=== PATIENT | male | born 1965 | race Caucasian/White ===

== ENCOUNTER 2016-10-18 22:38 | Observation (INO) | payer OTHER ==
[2016-10-18] MEDS ORDERED: Sodium Chloride 0.9% 1,000 ML IV ONE (23:24)
--- NOTE | 2016-10-18 23:28 | EDM.PDOC ---
ED HPI GENERAL MEDICAL PROBLEM - General Chief Complaint: Gastrointestinal Problem Stated Complaint: VOMITING/BLOOD IN STOOL Time Seen by Provider: 10/18/16 23:14 - History of Present Illness INITIAL COMMENTS - FREE TEXT/NARRATIVE: HISTORY AND PHYSICAL: History of present illness: Patient is 51-year-old white male presents with concern of nausea and vomiting times one followed by several episodes of gross blood per rectum he states as well as with the bowel movement he has not had prior episodes he denies any history of peptic ulcer disease he denied abdominal pain with this he denies fever chills denies history of diverticulosis or diverticulitis he denies any known bleeding diathesis he denies chest pain shortness breath or other concern Review of systems: As per history of present illness and below otherwise all systems reviewed and negative. Past medical history: As per history of present illness and as reviewed below otherwise noncontributory. Surgical history: As per history of present illness and as reviewed below otherwise noncontributory. Social history: No reported history of drug or alcohol abuse. Family history: As per history of present illness and as reviewed below otherwise noncontributory. Physical exam: HEENT: Atraumatic, normocephalic, pupils reactive, mild conjunctival pallor noted no scleral icterus, mucous membranes moist, throat clear, neck supple, nontender, trachea midline. Lungs: Clear to auscultation, breath sounds equal bilaterally, chest nontender. Heart: S1S2, regular, negative for clicks, rubs, or JVD. Abdomen: Soft, nondistended, nontender. Negative for masses or hepatosplenomegaly. Negative for costovertebral tenderness. Pelvis: Stable nontender. Genitourinary: Deferred. Rectal: Nontender small gross blood heme positive Extremities: Atraumatic, negative for cords or calf pain. Neurovascular unremarkable. Neuro: Awake, alert, oriented. Cranial nerves II through XII unremarkable. Cerebellum unremarkable. Motor and sensory unremarkable throughout. Exam nonfocal. Diagnostics: CBC CMP lipase PT/INR type and screen EKG chest x-ray CT of pelvis Therapeutics: Normal saline 1 L bolus Impression: #1 rectal bleeding Definitive disposition and diagnosis as appropriate pending reevaluation and review of above. Epigastric Pain Score (Numeric/FACES): 2 - Related Data Allergies Allergy/AdvReac Type Severity Reaction Status Date / Time latex Allergy Itching Verified 10/18/16 22:57 Home Meds: Home Meds Sertraline [Zoloft] 100 mg PO DAILY 05/31/14 [History] NIFEdipine [Procardia] 90 mg PO DAILY 03/26/15 [History] Acetaminophen [Acetaminophen ER] 650 mg PO DAILY PRN 01/06/16 [History] Bumetanide [Bumex] 3 mg PO ASDIRECTED 01/06/16 [History] Cetirizine HCl [Zyrtec] 10 mg PO ASDIRECTED PRN 01/06/16 [History] Labetalol HCl [Labetalol] 600 mg PO BID 01/06/16 [History] Metoprolol Tartrate [Lopressor] 100 mg PO DAILY 01/06/16 [History] Pantoprazole Sodium [Protonix] 40 mg PO DAILY 01/06/16 [History] Rivaroxaban [Xarelto] 20 mg PO DAILY 01/06/16 [History] Nitroglycerin 0.4 mg SL ASDIRECTED PRN #1 bottle 06/09/16 [Rx] Ondansetron [Zofran ODT] 4 mg PO Q8H PRN 06/09/16 [History] Canagliflozin [Invokana] 100 mg PO DAILY 10/19/16 [History] Fluticasone/Vilanterol [Breo Ellipta 100-25 MCG Inhalation Kit] 1 each IH DAILY 10/19/16 [History] Potassium Chloride [Klor-Con M20] 10 meq PO DAILY 10/19/16 [History] tiZANidine [Zanaflex] 4 mg PO TID PRN 10/19/16 [History] Past Medical History - Past Health History Medical/Surgical History: Denies Medical/Surgical History Cardiovascular History: Reports: Afib, Hypertension Respiratory History: Reports: Sleep Apnea Other Respiratory History: on cpap Other Genitourinary History: stage II kidney dse Musculoskeletal History: Reports: Back Pain, Chronic Other Musculoskeletal History: Pt complains of left knee pain x 2 weeks. Claimed to have taken Tylenol for it to no relief. Neurological History: Reports: Other (See Below) Other Neuro History: carpal tunnel Endocrine/Metabolic History: Reports: Diabetes, Type II Other Endocrine/Metabolic History: Pt reported he was diagnosed with Borderline DM. Blood sugar this morning was 170. - Infectious Disease History Infectious Disease History: Reports: Chicken Pox Other Infectious Disease History: Staph - Past Surgical History HEENT Surgical History: Reports: Tonsillectomy GI Surgical History: Reports: Cholecystectomy Musculoskeletal Surgical History: Reports: Arthroscopic Knee, Other (See Below) Social & Family History - Family History Family Medical History: Noncontributory - Tobacco Use Smoking Status *Q: Never Smoker Second Hand Smoke Exposure: No - Caffeine Use Caffeine Use: Reports: Coffee, Soda Caffeine Use Comment: 2cups/day; 3-4sodas/day - Alcohol Use Days Per Week of Alcohol Use: 1 Number of Drinks Per Day: 2 Total Drinks Per Week: 2 - Recreational Drug Use Recreational Drug Use: No ED ROS GENERAL - Review of Systems Review Of Systems: ROS reveals no pertinent complaints other than HPI. ED EXAM, GENERAL - Physical Exam Exam: See Below (See dictation) Course - Vital Signs Last Recorded V/S: Last Vital Signs Temp 37.0 C 10/18/16 22:53 Pulse 80 10/19/16 00:11 Resp 19 10/19/16 00:11 BP 131/68 10/19/16 00:11 Pulse Ox 99 10/19/16 00:11 - Orders/Labs/Meds Orders: Active Orders 24 hr Category Date Time Status EKG 12 Lead [EKG Documentation Completion] [RC] STAT Care 10/18/16 23:49 Active EKG Documentation Completion [RC] STAT Care 10/18/16 23:25 Active EKG Documentation Completion [RC] STAT Care 10/18/16 23:45 Inactive Abdomen Pelvis wo Cont [CT] Stat Exams 10/18/16 23:24 Taken Chest 1V Frontal [CR] Stat Exams 10/18/16 23:25 Taken TYPE AND SCREEN [BBK] Stat Lab 10/18/16 23:41 Received Labs: Laboratory Tests 10/18/16 10/18/16 10/18/16 Range/Units 23:05 23:05 23:05 WBC 10.39 (4.0-11.0) K/uL RBC 3.74 L (4.50-5.90) M/uL Hgb 10.9 L (13.0-17.0) g/dL Hct 33.3 L (38.0-50.0) % MCV 89.0 (80.0-98.0) fL MCH 29.1 (27.0-32.0) pg MCHC 32.7 (31.0-37.0) g/dL RDW Std Deviation 46.6 (28.0-62.0) fl RDW Coeff of [place] 14 (11.0-15.0) % Plt Count 251 (150-400) K/uL MPV 9.30 (7.40-12.00) fL Neut % (Auto) 72.8 (48.0-80.0) % Lymph % (Auto) 14.8 L (16.0-40.0) % [place] % (Auto) 9.0 (0.0-15.0) % Eos % (Auto) 3.0 (0.0-7.0) % Baso % (Auto) 0.4 (0.0-1.5) % Neut # (Auto) 7.6 H (1.4-5.7) K/uL Lymph # (Auto) 1.5 (0.6-2.4) K/uL [place] # (Auto) 0.9 H (0.0-0.8) K/uL Eos # (Auto) 0.3 (0.0-0.7) K/uL Baso # (Auto) 0.0 (0.0-0.1) K/uL Nucleated RBC % 0.0 /100WBC Nucleated RBCs # 0 K/uL INR 1.04 (0.86-1.11) Sodium 143 (136-146) mmol/L Potassium 4.3 (3.5-5.1) mmol/L Chloride 112 H (98-110) mmol/L Carbon Dioxide 22 (21-31) mmol/L BUN 34 H (6.0-23.0) mg/dL Creatinine 1.1 (0.6-1.5) mg/dL Est Cr Clr Drug Dosing 85.57 mL/min Estimated GFR (MDRD) > 60.0 ml/min Glucose 184 H (60-110) mg/dL Calcium 9.0 (8.8-10.8) mg/dL Total Bilirubin 0.2 (0.1-1.5) mg/dL AST 14 (5-40) IU/L ALT 17 (8-54) IU/L Alkaline Phosphatase 57 (40-150) Total Protein 5.9 L (6.0-8.0) g/dL Albumin 3.4 L (3.5-5.0) g/dL Globulin 2.5 (2.0-3.5) g/dL Albumin/Globulin Ratio 1.4 (1.3-2.8) Lipase 41 (7-80) U/L Urine Color Urine Appearance Urine pH (5.0-8.0) Ur Specific [place] (1.001-1.035) Urine Protein (NEGATIVE) mg/dL Urine Glucose (UA) (NEGATIVE) mg/dL Urine Ketones (NEGATIVE) mg/dL Urine Occult Blood (NEGATIVE) Urine Nitrite (NEGATIVE) Urine Bilirubin (NEGATIVE) Urine Urobilinogen (<2.0) EU/dL Ur Leukocyte Esterase (NEGATIVE) Urine RBC (0-2/HPF) Urine WBC (0-5/HPF) Ur Epithelial Cells (NONE-FEW) Urine Bacteria (NEGATIVE) Ethyl Alcohol < 10.0 mg/dL 10/18/16 Range/Units 23:30 WBC (4.0-11.0) K/uL RBC (4.50-5.90) M/uL Hgb (13.0-17.0) g/dL Hct (38.0-50.0) % MCV (80.0-98.0) fL MCH (27.0-32.0) pg MCHC (31.0-37.0) g/dL RDW Std Deviation (28.0-62.0) fl RDW Coeff of [place] (11.0-15.0) % Plt Count (150-400) K/uL MPV (7.40-12.00) fL Neut % (Auto) (48.0-80.0) % Lymph % (Auto) (16.0-40.0) % [place] % (Auto) (0.0-15.0) % Eos % (Auto) (0.0-7.0) % Baso % (Auto) (0.0-1.5) % Neut # (Auto) (1.4-5.7) K/uL Lymph # (Auto) (0.6-2.4) K/uL [place] # (Auto) (0.0-0.8) K/uL Eos # (Auto) (0.0-0.7) K/uL Baso # (Auto) (0.0-0.1) K/uL Nucleated RBC % /100WBC Nucleated RBCs # K/uL INR (0.86-1.11) Sodium (136-146) mmol/L Potassium (3.5-5.1) mmol/L Chloride (98-110) mmol/L Carbon Dioxide (21-31) mmol/L BUN (6.0-23.0) mg/dL Creatinine (0.6-1.5) mg/dL Est Cr Clr Drug Dosing mL/min Estimated GFR (MDRD) ml/min Glucose (60-110) mg/dL Calcium (8.8-10.8) mg/dL Total Bilirubin (0.1-1.5) mg/dL AST (5-40) IU/L ALT (8-54) IU/L Alkaline Phosphatase (40-150) Total Protein (6.0-8.0) g/dL Albumin (3.5-5.0) g/dL Globulin (2.0-3.5) g/dL Albumin/Globulin Ratio (1.3-2.8) Lipase (7-80) U/L Urine Color YELLOW Urine Appearance CLEAR Urine pH 6.0 (5.0-8.0) Ur Specific [place] 1.025 (1.001-1.035) Urine Protein 100 (NEGATIVE) mg/dL Urine Glucose (UA) NEGATIVE (NEGATIVE) mg/dL Urine Ketones NEGATIVE (NEGATIVE) mg/dL Urine Occult Blood NEGATIVE (NEGATIVE) Urine Nitrite NEGATIVE (NEGATIVE) Urine Bilirubin NEGATIVE (NEGATIVE) Urine Urobilinogen 0.2 (<2.0) EU/dL Ur Leukocyte Esterase NEGATIVE (NEGATIVE) Urine RBC 0-1 (0-2/HPF) Urine WBC 0-1 (0-5/HPF) Ur Epithelial Cells NOT SEEN (NONE-FEW) Urine Bacteria RARE (NEGATIVE) Ethyl Alcohol mg/dL Meds: Medications Discontinued Medications Generic Name Dose Route Start Last Admin Trade Name Freq PRN Reason Stop Dose Admin Sodium Chloride 1,000 mls @ 999 mls/hr 10/18/16 23:24 10/18/16 23:36 Normal Saline IV 10/19/16 00:24 999 mls/hr STAT ONE Administration Departure - Departure Time of Disposition: 00:57 Disposition: Refer to Observation Condition: good Clinical Impression: Gastrointestinal hemorrhage - Discharge Information Forms: ED Department Discharge - My Orders Last 24 Hours: My Active Orders 10/18/16 23:24 Abdomen Pelvis wo Cont [CT] Stat 10/18/16 23:25 EKG Documentation Completion [RC] STAT Chest 1V Frontal [CR] Stat 10/18/16 23:41 TYPE AND SCREEN [BBK] Stat 10/18/16 23:45 EKG Documentation Completion [RC] STAT 10/18/16 23:49 EKG 12 Lead [EKG Documentation Completion] [RC] STAT - Assessment/Plan Last 24 Hours: My Active Orders 10/18/16 23:24 Abdomen Pelvis wo Cont [CT] Stat 10/18/16 23:25 EKG Documentation Completion [RC] STAT Chest 1V Frontal [CR] Stat 10/18/16 23:41 TYPE AND SCREEN [BBK] Stat 10/18/16 23:45 EKG Documentation Completion [RC] STAT 10/18/16 23:49 EKG 12 Lead [EKG Documentation Completion] [RC] STAT
[2016-10-18 23:43] LABS: CHLORIDE,CL 112 mmol/L (98-110); SODIUM,NA 143 mmol/L (136-146)
[2016-10-19] MEDS: Sodium Chloride 0.9% 1,000 ML IV SCH ×2 (02:37→10:11)
[2016-10-19] MEDS: Pantoprazole 40 MG in Sodium Chloride 0.9% 10 ML IVPUSH SCH ×2 (02:42→13:45)
[2016-10-19 05:21] LABS: CHLORIDE,CL 115 mmol/L (98-110); SODIUM,NA 141 mmol/L (136-146)
[2016-10-19] MEDS ORDERED: Insulin Aspart 100 Units/ML 3 ML Pen SUBCUT SCH (06:00)
[2016-10-19] MEDS: Insulin Aspart 100 Units/ML 3 ML Pen SUBCUT SCH ×2 (06:16→11:07)
--- NOTE | 2016-10-19 10:34 | CT ---
EXAM DATE: 10/19/16 PATIENT'S AGE: 51 Patient: ROSY CHUNG Facility: [place], [place] Site . Site : 1965 Study: CT Abdomen/Pelvis [id number]/19/[id number] 12:09:25 AM Ordering Physician: MARYBETH Final Report: INDICATION: Mid abdominal pain TECHNIQUE: CT abdomen and pelvis without contrast. COMPARISON: None FINDINGS: Lower chest: Small amount of simple pericardial fluid. Liver: Unremarkable. Spleen: Punctate calcified splenic granulomata. Pancreas: Unremarkable. Gallbladder and bile ducts: Status post cholecystectomy. Adrenal glands: Unremarkable. Kidneys: Simple cysts on both kidneys. No kidney or ureteral stones and no hydronephrosis. GI tract: Unremarkable. Appendix is normal. Vascular structures: Mild atherosclerotic disease. Lymph nodes: Unremarkable. Miscellaneous: Fat containing right inguinal hernia. No free air or significant free fluid. Pelvic Organs: Unremarkable. Bones: Unremarkable for age. IMPRESSION: No acute intra-abdominal process. There is no renal stone. Small pericardial effusion. Fat containing right inguinal hernia. Status postcholecystectomy. Dictated by Yaa Moraes MD @ Oct 19 2016 12:09AM (Electronic Signature) Report Signed by Proxy. [facility] HOSPITALIzzy
--- NOTE | 2016-10-19 10:34 | CR ---
EXAM DATE: 10/19/16 PATIENT'S AGE: 51 Patient: ROSY CHUNG Facility: [place], [place] Site . Site : 1965 Study: XRay Chest [id number]/19/2017 12:08:39 AM Ordering Physician: Migel Henley Final Report: Indication: Pain, shortness of breath Technique: Chest 1 view. Comparison: September 09, 2014 Findings: Cardiovascular and mediastinum: Heart size and vasculature are normal in caliber and appearance. Mediastinum is within normal limits. Lungs and pleural space: Lungs are clear. No sign of infiltrate or mass. No sign of pleural effusion. No pneumothorax. Bones and soft tissues: No significant findings. Impression: No sign of acute disease. Dictated by Yaa Moraes MD @ Oct 19 2016 12:09AM (Electronic Signature) Report Signed by Proxy. MARGI
--- NOTE | 2016-10-19 12:22 | PCM.HP ---
H&P History of Present Illness - General Date of Service: 10/19/16 Admit Problem/Dx: Admission Diagnosis/Problem Admission Diagnosis/Problem Gastrointestinal hemorrhage - History of Present Illness Initial Comments - Free Text/Narative: 51 yo male with history of AF, HTN, DM2, FELIX, Cholecystectomy and CKD stage 2 admitted for rectal bleeding. His is currently at bedside. Bleeding began last night at around 9pm. He describes it as watery appearing blood with little amounts of stool. It was accompanied with intense stomach pains, nausea and vomiting. He denies any anal or rectal pain during bowel movements. He does not take any NSAIDS. He is currently on Doxycycline which was started 1 week ago for cellulitis of his left leg. He does not use alcohol or tobacco. He had no fever, chills or other recent illness. He states he was doing fine prior to this starting. He denies eating anything unusual. He had some leftover beef from the day before but it was less than 24 hours old. He has a family history of colon cancer in his grandfather. About 20 years ago patient himself developed hemorrhoids for which he had a colonoscopy that was normal. Patient has had about 20 lbs weight loss over the past 2 months. Prior to the weight loss he was started on Invokana for his diabetes which has caused him to lose his appetite and not eat as much. Patient was on eliquis in the past for AF but he states he has not taken it for over 2 months due to its high cost. 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 Patients also states that patient was complaining of indigestion and looking pale prior to onset of rectal bleeding but patient denies feeling ill. ED Course: -NS Bolus -afebrile, bp 153/100, HR 91, AF on EKG -Hb 10.9, WBC 10.9k -PT/INR 1.04 -BUN 34, Cr 1.1, GFR>60 -Na 143, K 4.3, Cl 112, Bicarb 22, Glucose 184 -Lipase/Alk Phos/ALT/AST all normal -CT Abdomen - Small Right inguinal Hernia. Small Pericardial Effusion. All others WNL. Epigastric Pain Score (Numeric/FACES): 2 - Related Data Allergies/Adverse Reactions: Allergies Allergy/AdvReac Type Severity Reaction Status Date / Time latex Allergy Itching Verified 10/18/16 22:57 Home Medications: Home Meds Sertraline [Zoloft] 100 mg PO BEDTIME 05/31/14 [History] Acetaminophen [Acetaminophen ER] 650 mg PO DAILY PRN 01/06/16 [History] Bumetanide [Bumex] 3 mg PO DAILY 01/06/16 [History] Cetirizine HCl [Zyrtec] 10 mg PO ASDIRECTED PRN 01/06/16 [History] Labetalol HCl [Labetalol] 600 mg PO BID 01/06/16 [History] Metoprolol Tartrate [Lopressor] 100 mg PO BEDTIME 01/06/16 [History] Pantoprazole Sodium [Protonix] 40 mg PO DAILY 01/06/16 [History] Rivaroxaban [Xarelto] 20 mg PO DAILY 01/06/16 [History] Nitroglycerin 0.4 mg SL ASDIRECTED PRN #1 bottle 06/09/16 [Rx] Ondansetron [Zofran ODT] 4 mg PO TID PRN 06/09/16 [History] Bumetanide 2 mg PO QPM 10/19/16 [History] Canagliflozin [Invokana] 100 mg PO DAILY 10/19/16 [History] Doxycycline [Vibramycin] 10/19/16 [History] Fluticasone/Vilanterol [Breo Ellipta 100-25 MCG Inhalation Kit] 1 each IH DAILY 10/19/16 [History] Lisinopril 40 mg PO DAILY 10/19/16 [History] Mupirocin Oint [Bactroban Oint] 1 applic TOP TID PRN 10/19/16 [History] NIFEdipine [Adalat cc] 90 mg PO BID 10/19/16 [History] [place]-3 Acid Ethyl Esters [Lovaza] 2,000 mg PO BID 10/19/16 [History] Potassium Chloride [Klor-Con M20] 10 meq PO DAILY 10/19/16 [History] tiZANidine [Zanaflex] 4 mg PO TID PRN 10/19/16 [History] Past Medical History - Past Health History Medical/Surgical History: Denies Medical/Surgical History HEENT History: Reports: None Cardiovascular History: Reports: Afib, Hypertension Respiratory History: Reports: Sleep Apnea Other Respiratory History: on cpap Gastrointestinal History: Reports: Cholelithiasis, Hemorrhoids Other Genitourinary History: stage II kidney dse Musculoskeletal History: Reports: Back Pain, Chronic Other Musculoskeletal History: Pt complains of left knee pain x 2 weeks. Claimed to have taken Tylenol for it to no relief. Parcialy ruptured disc. Shoulder separature, fracture tail bone. Neurological History: Reports: Other (See Below) Other Neuro History: carpal tunnel Endocrine/Metabolic History: Reports: Diabetes, Type II Other Endocrine/Metabolic History: Pt reported he was diagnosed with Borderline DM. Blood sugar this morning was 170. Dermatologic History: Reports: Cellulitis - Infectious Disease History Infectious Disease History: Reports: Chicken Pox Other Infectious Disease History: Staph - Past Surgical History HEENT Surgical History: Reports: Tonsillectomy Cardiovascular Surgical History: Reports: None Respiratory Surgical History: Reports: None GI Surgical History: Reports: Cholecystectomy, Colostomy, EGD Male Surgical History: Reports: None Endocrine Surgical History: Reports: None Musculoskeletal Surgical History: Reports: Arthroscopic Knee, Carpal Tunnel, Other (See Below) Social & Family History - Family History Family Medical History: Noncontributory - Tobacco Use Smoking Status *Q: Never Smoker Tobacco Use Comment: tried before. Second Hand Smoke Exposure: No - Caffeine Use Caffeine Use: Reports: Coffee, Soda, Tea Caffeine Use Comment: 2cups/day; 3-4sodas/day - Alcohol Use Days Per Week of Alcohol Use: 1 Number of Drinks Per Day: 2 Total Drinks Per Week: 2 - Recreational Drug Use Recreational Drug Use: No H&P Review of Systems - Review of Systems: Review Of Systems: See Below General: Reports: Weakness, Decreased Appetite, Weight Loss. Denies: Fever, Chills, Night Sweats HEENT: Reports: No Symptoms Pulmonary: Reports: No Symptoms Cardiovascular: Reports: No Symptoms Gastrointestinal: Reports: Abdominal Pain, Bloody Stool, Decreased Appetite, Hematochezia, Nausea, Vomiting. Denies: Hematemesis, Melena Genitourinary: Reports: No Symptoms Musculoskeletal: Reports: Other (baseline chronic pain) Skin: Reports: No Symptoms Psychiatric: Reports: No Symptoms Neurological: Reports: Tremors. Denies: Confusion, Dizziness, Headache, Numbness Exam - Exam Exam: See Below - Vital Signs Vital Signs: Last Vital Signs Temp 36.6 C 10/19/16 04:00 Pulse 70 10/19/16 08:00 Resp 16 10/19/16 08:00 BP 167/100 H 10/19/16 08:00 Pulse Ox 96 10/19/16 08:00 Weight: 113.6 kg - Exam General: Alert, Oriented, Cooperative, Mild Distress HEENT: Conjunctiva Clear, EACs Clear Neck: Supple, Trachea Midline, +2 Carotid Pulse wo Bruit. No: JVD Lungs: Clear to Auscultation, Normal Respiratory Effort Cardiovascular: Regular Rate, Irregular Rhythm Abdomen: Other (epigastric tenderness, hypogasteric tenderness, ). No: Peritoneal Signs, Distention, Rebound, Hepatomegaly, Splenomegaly, Campbell's Sign Extremities: Normal Inspection Skin: Other (Left Leg cellulitis ) Neuro Extensive - Mental Status: Alert, Oriented x3, Normal Mood/Affect, Normal Cognition - Patient Data Lab Results last 24 hrs: Laboratory Results - last 24 hr 10/19/16 10/19/16 10/19/16 Range/Units 04:29 04:40 04:40 WBC 7.67 (4.0-11.0) K/uL RBC 3.19 L (4.50-5.90) M/uL Hgb 9.5 L (13.0-17.0) g/dL Hct 28.3 L (38.0-50.0) % MCV 88.7 (80.0-98.0) fL MCH 29.8 (27.0-32.0) pg MCHC 33.6 (31.0-37.0) g/dL RDW Std Deviation 46.5 (28.0-62.0) fl RDW Coeff of [place] 14 (11.0-15.0) % Plt Count 214 (150-400) K/uL MPV 9.00 (7.40-12.00) fL Neut % (Auto) 54.9 (48.0-80.0) % Lymph % (Auto) 30.6 (16.0-40.0) % [place] % (Auto) 8.9 (0.0-15.0) % Eos % (Auto) 5.1 (0.0-7.0) % Baso % (Auto) 0.5 (0.0-1.5) % Neut # (Auto) 4.2 (1.4-5.7) K/uL Lymph # (Auto) 2.4 (0.6-2.4) K/uL [place] # (Auto) 0.7 (0.0-0.8) K/uL Eos # (Auto) 0.4 (0.0-0.7) K/uL Baso # (Auto) 0.0 (0.0-0.1) K/uL Nucleated RBC % 0.0 /100WBC Nucleated RBCs # 0 K/uL Lactate (0.20-2.00) mmol/L Sodium 141 (136-146) mmol/L Potassium 3.8 (3.5-5.1) mmol/L Chloride 115 H (98-110) mmol/L Carbon Dioxide 18 L (21-31) mmol/L BUN 38 H (6.0-23.0) mg/dL Creatinine 0.9 (0.6-1.5) mg/dL Est Cr Clr Drug Dosing 104.58 mL/min Estimated GFR (MDRD) > 60.0 ml/min Glucose 119 H (60-110) mg/dL POC Glucose 105 (60-110) mg/dL Calcium 8.4 L (8.8-10.8) mg/dL 10/19/16 10/19/16 Range/Units 10:56 11:07 WBC (4.0-11.0) K/uL RBC (4.50-5.90) M/uL Hgb (13.0-17.0) g/dL Hct (38.0-50.0) % MCV (80.0-98.0) fL MCH (27.0-32.0) pg MCHC (31.0-37.0) g/dL RDW Std Deviation (28.0-62.0) fl RDW Coeff of [place] (11.0-15.0) % Plt Count (150-400) K/uL MPV (7.40-12.00) fL Neut % (Auto) (48.0-80.0) % Lymph % (Auto) (16.0-40.0) % [place] % (Auto) (0.0-15.0) % Eos % (Auto) (0.0-7.0) % Baso % (Auto) (0.0-1.5) % Neut # (Auto) (1.4-5.7) K/uL Lymph # (Auto) (0.6-2.4) K/uL [place] # (Auto) (0.0-0.8) K/uL Eos # (Auto) (0.0-0.7) K/uL Baso # (Auto) (0.0-0.1) K/uL Nucleated RBC % /100WBC Nucleated RBCs # K/uL Lactate 1.2 (0.20-2.00) mmol/L Sodium (136-146) mmol/L Potassium (3.5-5.1) mmol/L Chloride (98-110) mmol/L Carbon Dioxide (21-31) mmol/L BUN (6.0-23.0) mg/dL Creatinine (0.6-1.5) mg/dL Est Cr Clr Drug Dosing mL/min Estimated GFR (MDRD) ml/min Glucose (60-110) mg/dL POC Glucose 119 H (60-110) mg/dL Calcium (8.8-10.8) mg/dL Result Diagrams: 10/19/16 04:40 10/19/16 04:40 *Q Meaningful Use (ADM) - VTE *Q VTE Criteria *Q: - Stroke *Q Stroke Criteria *Q: - AMI *Q AMI Criteria *Q: Problem List Initiated/Reviewed/Updated: Yes Orders Last 24hrs: Active Orders 24 hr Category Date Time Status Blood Glucose Check, Bedside [RC] Q6H Care 10/19/16 05:00 Active Telemetry Monitoring [Cardiac Monitoring] [RC] Q8H Care 10/19/16 02:55 Active Nothing Per Oral Diet [DIET] Diet 10/19/16 Breakfast Active CBC WITH AUTO DIFF [HEME] Routine Lab 10/19/16 16:00 Ordered Insulin Aspart [NovoLOG] Med 10/19/16 05:00 Active See Protocol SUBCUT Q6H Pantoprazole [ProTONIX IV] 40 mg Med 10/19/16 02:30 Active Sodium Chloride 0.9% [Normal Saline] 10 ml IVPUSH Q12H Sodium Chloride 0.9% [Normal Saline] 1,000 ml Med 10/19/16 02:30 Active IV ASDIRECTED Medication Orders Pantoprazole Sodium 40 mg/ (Sodium Chloride) 10 mls @ 300 mls/hr IVPUSH Q12H [facility] Last Admin: 10/19/16 02:42 Dose: 300 mls/hr Sodium Chloride (Normal Saline) 1,000 mls @ 125 mls/hr IV ASDIRECTED [facility] Last Admin: 10/19/16 10:11 Dose: 125 mls/hr Infusion: 10/19/16 10:11 Dose: 125 mls/hr Admin: 10/19/16 02:37 Dose: 125 mls/hr Insulin Aspart (Novolog) 0 unit SUBCUT Q6H [facility] PRN Reason: Protocol Last Admin: 10/19/16 11:07 Dose: Not Given Admin: 10/19/16 06:16 Dose: Not Given Assessment/Plan Comment:: Asessment: 1. Rectal Bleeding 2. Abdominal Pain and Epigastric+Hypogastric Tenderness 3. Anemia, Hb currently 10.9, admission Hb 4 hours prior was 9.5 4. Atrial Fibrillation, rate controlled 5. HTN, secondary to holding of BP medications 6. Hx CKD stage 2, currently good renal function 7. Hx Diabetes Type 2, on Invokana 8. Hx FELIX, on CPAP 9. Right Inguinal Hernia, on CT Abdomen 10. Pericardial Effusion, on CT Plan: 1. NPO 2. Telemetry 3. IV NS @ 125 ml/hour 4. Protonix 40 mg IV BID 5. Stool studies - C. Diff Toxin, H. Pylori, Leukocytes, Culture, Ova and Parasites, Shiga Toxin 6. Lactic Acid Level 7. repeat CBC & BMP in evening 8. DVT Prophylaxis - SCD's 9. Consult to surgery - Dr. Ortiz has agreed to see the patient
[2016-10-19] MEDS ORDERED: Metoprolol Tartrate 5 MG/5 ML SDV IVPUSH ONE ×2 (13:14→14:52)
[2016-10-19] MEDS ORDERED: NIFEdipine 30 MG Tab.ER PO ONE (13:23)
--- NOTE | 2016-10-19 14:55 | PCM.CONS ---
H&P History of Present Illness - General Date of Service: 10/19/16 Admit Problem/Dx: Admission Diagnosis/Problem Admission Diagnosis/Problem Gastrointestinal hemorrhage 51 y/o gentleman admitted with persistent rectal bleeding. No prior history of rectal bleeding or diverticulosis. Remote history of hemorrhoids. No recent flare-ups. Source of Information: Patient, Family History Limitations: Reports: No Limitations - History of Present Illness Onset of Symptoms: Reports: Gradual Symptom Onset Date: 10/18/16 Duration of Symptoms: Reports: Hour(s): Location: Reports: Abdomen Quality: Reports: Ache Severity: Moderate Improves with: Reports: None Worsens with: Reports: None Context: Reports: Sick Contact Associated Symptoms: Denies: Diaphoresis, Fever/Chills, Nausea/Vomiting Epigastric Pain Score (Numeric/FACES): 2 - Related Data Allergies/Adverse Reactions: Allergies Allergy/AdvReac Type Severity Reaction Status Date / Time latex Allergy Itching Verified 10/18/16 22:57 Home Medications: Home Meds Sertraline [Zoloft] 100 mg PO BEDTIME 05/31/14 [History] Acetaminophen [Acetaminophen ER] 650 mg PO DAILY PRN 01/06/16 [History] Bumetanide [Bumex] 3 mg PO DAILY 01/06/16 [History] Cetirizine HCl [Zyrtec] 10 mg PO ASDIRECTED PRN 01/06/16 [History] Labetalol HCl [Labetalol] 600 mg PO BID 01/06/16 [History] Metoprolol Tartrate [Lopressor] 100 mg PO BEDTIME 01/06/16 [History] Pantoprazole Sodium [Protonix] 40 mg PO DAILY 01/06/16 [History] Rivaroxaban [Xarelto] 20 mg PO DAILY 01/06/16 [History] Nitroglycerin 0.4 mg SL ASDIRECTED PRN #1 bottle 06/09/16 [Rx] Ondansetron [Zofran ODT] 4 mg PO TID PRN 06/09/16 [History] Bumetanide 2 mg PO QPM 10/19/16 [History] Canagliflozin [Invokana] 100 mg PO DAILY 10/19/16 [History] Doxycycline [Vibramycin] 10/19/16 [History] Fluticasone/Vilanterol [Breo Ellipta 100-25 MCG Inhalation Kit] 1 each IH DAILY 10/19/16 [History] Lisinopril 40 mg PO DAILY 10/19/16 [History] Mupirocin Oint [Bactroban Oint] 1 applic TOP TID PRN 10/19/16 [History] NIFEdipine [Adalat cc] 90 mg PO BID 10/19/16 [History] [place]-3 Acid Ethyl Esters [Lovaza] 2,000 mg PO BID 10/19/16 [History] Potassium Chloride [Klor-Con M20] 10 meq PO DAILY 10/19/16 [History] tiZANidine [Zanaflex] 4 mg PO TID PRN 10/19/16 [History] Past Medical History - Past Health History Medical/Surgical History: Denies Medical/Surgical History HEENT History: Reports: None Cardiovascular History: Reports: Afib, Hypertension Respiratory History: Reports: Sleep Apnea Other Respiratory History: on cpap Gastrointestinal History: Reports: Cholelithiasis, Hemorrhoids Other Genitourinary History: stage II kidney dse Musculoskeletal History: Reports: Back Pain, Chronic Other Musculoskeletal History: Pt complains of left knee pain x 2 weeks. Claimed to have taken Tylenol for it to no relief. Parcialy ruptured disc. Shoulder separature, fracture tail bone. Neurological History: Reports: Other (See Below) Other Neuro History: carpal tunnel Endocrine/Metabolic History: Reports: Diabetes, Type II Other Endocrine/Metabolic History: Pt reported he was diagnosed with Borderline DM. Blood sugar this morning was 170. Dermatologic History: Reports: Cellulitis - Infectious Disease History Infectious Disease History: Reports: Chicken Pox Other Infectious Disease History: Staph - Past Surgical History HEENT Surgical History: Reports: Tonsillectomy Cardiovascular Surgical History: Reports: None Respiratory Surgical History: Reports: None GI Surgical History: Reports: Cholecystectomy, Colostomy, EGD Male Surgical History: Reports: None Endocrine Surgical History: Reports: None Musculoskeletal Surgical History: Reports: Arthroscopic Knee, Carpal Tunnel, Other (See Below) Social & Family History - Family History Family Medical History: Noncontributory - Tobacco Use Smoking Status *Q: Never Smoker Tobacco Use Comment: tried before. Second Hand Smoke Exposure: No - Caffeine Use Caffeine Use: Reports: Coffee, Soda, Tea Caffeine Use Comment: 2cups/day; 3-4sodas/day - Alcohol Use Days Per Week of Alcohol Use: 1 Number of Drinks Per Day: 2 Total Drinks Per Week: 2 - Recreational Drug Use Recreational Drug Use: No H&P Review of Systems - Review of Systems: Review Of Systems: See Below General: Denies: Fever, Chills, Malaise, Weakness, Fatigue, Diaphoresis HEENT: Reports: No Symptoms Pulmonary: Denies: Shortness of Breath, Wheezing Cardiovascular: Denies: Chest Pain, Dyspnea on Exertion Gastrointestinal: Reports: Abdominal Pain, Bloody Stool, Hematochezia. Denies: Constipation, Diarrhea, Distension, Hematemesis, Melena, Nausea, Vomiting Genitourinary: Reports: No Symptoms Musculoskeletal: Reports: No Symptoms Skin: Reports: No Symptoms Psychiatric: Reports: No Symptoms Neurological: Reports: No Symptoms Hematologic/Lymphatic: Reports: Anemia. Denies: Easy Bleeding, Easy Bruising Immunologic: Reports: No Symptoms Exam - Exam Exam: See Below - Vital Signs Vital Signs: Last Vital Signs Temp 97.6 F 10/19/16 12:00 Pulse 72 10/19/16 13:48 Resp 16 10/19/16 13:48 BP 211/117 H 10/19/16 13:48 Pulse Ox 99 10/19/16 13:48 Weight: 250 lb 7.122 oz - Exam General: Alert, Oriented, Cooperative HEENT: Conjunctiva Clear, EACs Clear, EOMI. No: Scleral Icterus Neck: Supple, Trachea Midline Lungs: Clear to Auscultation, Normal Respiratory Effort. No: Wheezing Cardiovascular: Regular Rate, Regular Rhythm, Normal S1, Normal S2. No: Tachycardia, Systolic Murmur, Diastolic Murmur Abdomen: Normal Bowel Sounds, Soft. No: Organomegaly, Peritoneal Signs, Distention, Guarding, Rigidity, Rebound, Tenderness (Male) Exam: No Hernia, Normal Inspection Rectal (Males) Exam: Deferred Back Exam: Normal Inspection Extremities: Normal Inspection, Normal Pulses - Patient Data Lab Results last 24 hrs: Laboratory Results - last 24 hr 10/19/16 10/19/16 10/19/16 Range/Units 04:29 04:40 04:40 WBC 7.67 (4.0-11.0) K/uL RBC 3.19 L (4.50-5.90) M/uL Hgb 9.5 L (13.0-17.0) g/dL Hct 28.3 L (38.0-50.0) % MCV 88.7 (80.0-98.0) fL MCH 29.8 (27.0-32.0) pg MCHC 33.6 (31.0-37.0) g/dL RDW Std Deviation 46.5 (28.0-62.0) fl RDW Coeff of [place] 14 (11.0-15.0) % Plt Count 214 (150-400) K/uL MPV 9.00 (7.40-12.00) fL Neut % (Auto) 54.9 (48.0-80.0) % Lymph % (Auto) 30.6 (16.0-40.0) % [place] % (Auto) 8.9 (0.0-15.0) % Eos % (Auto) 5.1 (0.0-7.0) % Baso % (Auto) 0.5 (0.0-1.5) % Neut # (Auto) 4.2 (1.4-5.7) K/uL Lymph # (Auto) 2.4 (0.6-2.4) K/uL [place] # (Auto) 0.7 (0.0-0.8) K/uL Eos # (Auto) 0.4 (0.0-0.7) K/uL Baso # (Auto) 0.0 (0.0-0.1) K/uL Nucleated RBC % 0.0 /100WBC Nucleated RBCs # 0 K/uL Lactate (0.20-2.00) mmol/L Sodium 141 (136-146) mmol/L Potassium 3.8 (3.5-5.1) mmol/L Chloride 115 H (98-110) mmol/L Carbon Dioxide 18 L (21-31) mmol/L BUN 38 H (6.0-23.0) mg/dL Creatinine 0.9 (0.6-1.5) mg/dL Est Cr Clr Drug Dosing 104.58 mL/min Estimated GFR (MDRD) > 60.0 ml/min Glucose 119 H (60-110) mg/dL POC Glucose 105 (60-110) mg/dL Calcium 8.4 L (8.8-10.8) mg/dL 10/19/16 10/19/16 Range/Units 10:56 11:07 WBC (4.0-11.0) K/uL RBC (4.50-5.90) M/uL Hgb (13.0-17.0) g/dL Hct (38.0-50.0) % MCV (80.0-98.0) fL MCH (27.0-32.0) pg MCHC (31.0-37.0) g/dL RDW Std Deviation (28.0-62.0) fl RDW Coeff of [place] (11.0-15.0) % Plt Count (150-400) K/uL MPV (7.40-12.00) fL Neut % (Auto) (48.0-80.0) % Lymph % (Auto) (16.0-40.0) % [place] % (Auto) (0.0-15.0) % Eos % (Auto) (0.0-7.0) % Baso % (Auto) (0.0-1.5) % Neut # (Auto) (1.4-5.7) K/uL Lymph # (Auto) (0.6-2.4) K/uL [place] # (Auto) (0.0-0.8) K/uL Eos # (Auto) (0.0-0.7) K/uL Baso # (Auto) (0.0-0.1) K/uL Nucleated RBC % /100WBC Nucleated RBCs # K/uL Lactate 1.2 (0.20-2.00) mmol/L Sodium (136-146) mmol/L Potassium (3.5-5.1) mmol/L Chloride (98-110) mmol/L Carbon Dioxide (21-31) mmol/L BUN (6.0-23.0) mg/dL Creatinine (0.6-1.5) mg/dL Est Cr Clr Drug Dosing mL/min Estimated GFR (MDRD) ml/min Glucose (60-110) mg/dL POC Glucose 119 H (60-110) mg/dL Calcium (8.8-10.8) mg/dL Result Diagrams: 10/19/16 04:40 10/19/16 04:40 Consult PN Assessment/Plan Procedures: Procedures ASSAY OF NATRIURETIC PEPTIDE (09/09/14) ASSAY OF TROPONIN QUANT (06/09/16) CHEST X-RAY 2VW FRONTAL&LATL (09/09/14) COMPLETE CBC W/AUTO DIFF WBC (06/09/16) COMPREHEN METABOLIC PANEL (06/09/16) CRITICAL CARE FIRST HOUR (09/09/14) ELECTROCARDIOGRAM TRACING (06/09/16) EMERGENCY DEPT VISIT (06/09/16) EMERGENCY DEPT VISIT (03/26/15) EMERGENCY DEPT VISIT (09/09/14) EXTREMITY STUDY (01/06/16) METABOLIC PANEL TOTAL CA (09/09/14) PROTHROMBIN TIME (09/09/14) ROUTINE VENIPUNCTURE (06/09/16) SEMEN ANAL STRICT CRITERIA (09/06/14) THER/PROPH/DIAG INJ IV PUSH (06/09/16) THER/PROPH/DIAG INJ SC/IM (01/06/16) THER/PROPH/DIAG IV INF INIT (01/06/16) TX/PRO/DX INJ NEW DRUG ADDON (01/06/16) TX/PRO/DX INJ SAME DRUG ANTIQUE FURNITURE REPRODUCER (09/09/14) URINALYSIS AUTO W/SCOPE (06/09/16) X-RAY EXAM OF ANKLE (06/09/16) (1) Diabetes SNOMED Code(s): 30810684 Code(s): E11.9 - TYPE 2 DIABETES MELLITUS WITHOUT COMPLICATIONS Priority: Medium Current Visit: Yes Qualifiers: Diabetes mellitus type: type 2 (2) Pericardial effusion SNOMED Code(s): 187494665 Code(s): I31.3 - PERICARDIAL EFFUSION (NONINFLAMMATORY) Priority: Low Current Visit: Yes (3) Gastrointestinal hemorrhage SNOMED Code(s): 98175056 Code(s): K92.2 - GASTROINTESTINAL HEMORRHAGE, UNSPECIFIED Priority: High Current Visit: Yes Qualifiers: GI bleed type/associated pathology: anorectal hemorrhage Qualified Code(s) : K62.5 - Hemorrhage of anus and rectum (4) CHF, Congestive heart failure SNOMED Code(s): 01691961 Code(s): I50.9 - HEART FAILURE, UNSPECIFIED Priority: Medium Current Visit: No (5) Uncontrolled hypertension SNOMED Code(s): 75264132 Code(s): I10 - ESSENTIAL (PRIMARY) HYPERTENSION Priority: Medium Current Visit: No Problem List Initiated/Reviewed/Updated: Yes Plan: Patient continues to have rectal bleeding after more than 12 hours in hospital. Has had a slight drop in Hemoglobin. Multiple medical problems. Given that he continues to bleed and there is no evidence of diverticulosis or other colon pathology on CT scan, this gentleman would best be served by transfer to a larger facility with therapeutic endoscopic and invasive angiographic capabilities. We do not have the capability of therapeutic endoscopy with endoscopic heat probe units or other available endoscopic cauterization options. Thank you for this consult.
[2016-10-19] MEDS ORDERED: Labetalol 100 MG Tab PO ONE (15:10)
[2016-10-19 15:22] VITALS: BP 208/125
== END 2016-10-19 14:15 ==
LOC: MW.ED 22:38 → MW.MS 10-19 01:03
PROVIDERS: ADMIT Internal Medicine; ATTEND Internal Medicine
DX: K62.5 Hemorrhage of anus and rectum (principal); R10.9 Unspecified abdominal pain; D64.9 Anemia, unspecified; I48.91 Unspecified atrial fibrillation; I12.9 Hypertensive chronic kidney disease with stage 1 through stage 4 chronic kidney disease, or unspecified chronic kidney disease; E11.22 Type 2 diabetes mellitus with diabetic chronic kidney disease; N18.2 Chronic kidney disease, stage 2 (mild); G47.33 Obstructive sleep apnea (adult) (pediatric); K40.90 Unilateral inguinal hernia, without obstruction or gangrene, not specified as recurrent; I31.3 Pericardial effusion (noninflammatory); Z91.040 Latex allergy status; Z99.89 Dependence on other enabling machines and devices; Z79.01 Long term (current) use of anticoagulants; Z79.51 Long term (current) use of inhaled steroids; Z79.899 Other long term (current) drug therapy; Z90.49 Acquired absence of other specified parts of digestive tract; Z90.89 Acquired absence of other organs; Z98.890 Other specified postprocedural states
CPT/HCPCS: 36415; 71010; 74176; 80048; 80053; 81001; 82962; 83605; 83690; 85025; 85610; 86850; 86900; 86901; 87046; 87324; 87338; 87899; 93005; 96361; 96374; 96375; 96376; 99285; A9270; C9113; G0378; G0480; J7040; 96360

== ENCOUNTER 2017-09-11 11:44 | Emergency (ER) | payer OTHER ==
[2017-09-11] MEDS: Sodium Chloride 0.9% 1,000 ML IV ONE (12:03)
--- NOTE | 2017-09-11 12:05 | EDM.PDOC ---
ED HPI GENERAL MEDICAL PROBLEM - General Chief Complaint: Neuro Symptoms/Deficits Stated Complaint: dizziness Time Seen by Provider: 09/11/17 11:49 Source of Information: Reports: Patient History Limitations: Reports: No Limitations - History of Present Illness INITIAL COMMENTS - FREE TEXT/NARRATIVE: HISTORY AND PHYSICAL: History of present illness: Patient is a 52-year-old male who presents to the emergency room today with complaints of dizziness. He states he had a normal morning and went to sit down around 10 AM when he started to feel dizzy with movement. He tried to continue with work but felt unsteady on his feet due to the dizziness. Mild sinus congestion reported. He denies any associated symptoms with this. He denies any fever, chills, chest pain, shortness of breath. He denies any abdominal pain, nausea, vomiting, diarrhea/constipation. He denies any recent head injury or trauma. Denies headache or blurred vision. Patient does have a history of type 2 diabetes which she takes oral medications for. He does not routinely check his sugars. Today he ate cookies after taking his morning medications (had not eaten anything else this morning). Patient also has a history of atrial fibrillation which she is currently on Xarelto. Review of systems: As per history of present illness and below otherwise all systems reviewed and negative. Past medical history: As per history of present illness and as reviewed below otherwise noncontributory. Surgical history: As per history of present illness and as reviewed below otherwise noncontributory. Social history: No reported history of drug or alcohol abuse. Family history: As per history of present illness and as reviewed below otherwise noncontributory. Physical exam: General: Well-developed and well-nourished 52-year-old male. Alert and oriented. Nontoxic appearing and in no acute distress. HEENT: Atraumatic, normocephalic, pupils equal and reactive bilaterally, negative for conjunctival pallor or scleral icterus, mucous membranes moist, throat clear, neck supple, nontender, trachea midline. No drooling or trismus noted. No meningeal signs Lungs: Clear to auscultation, breath sounds equal bilaterally, chest nontender. Heart: S1S2, regular rate and rhythm without overt murmur Abdomen: Soft, obese, nontender. Negative for masses. Negative for costovertebral tenderness. Pelvis: Stable nontender. Genitourinary: Deferred. Rectal: Deferred. Skin: Intact, warm, dry. No lesions or rashes noted. Extremities: Atraumatic, moves all extremities per self without difficulty or deficits, negative for cords or calf pain. Neurovascular unremarkable. Neuro: Awake, alert, oriented. Cranial nerves II through XII unremarkable. Cerebellum unremarkable. Motor and sensory unremarkable throughout. Exam nonfocal. Notes: Patient denies any symptoms all he is lying flat. Bedside BS 219. He states that if I were to have him walk around he would become dizzy again. EKG shows atrial fibrillation with a rate of 69. is at bedside. She states she tried to get him into the clinic but they were unable to do so until 3 PM. Patient's blood pressure has been elevated throughout his stay here in the emergency room. He states he does see a prizer hand in [place] who has been adjusting his BP medications frequently. He states that the blood pressure readings that have been obtained here are normal for him. He does not want any further medications at this time. He is requesting that no medications be given here, as he "doesn't want to miss anything up" with his regiment he is currently on. He is aware of the consequences of continuing to have elevated blood pressure and voices understanding. Slight change in blood pressure with orthostatic vital signs; see nursing notes. BUN/Creat elevated; likely due to his dehydration. Did strongly encourage admission due to the patient's elevated blood pressure and dehydration. He declines at this time. He states he was able to get in with Dr. Morataya tomorrow at 1 PM. Encouraged him to discuss his blood pressure, elevated BUN/creatinine, and dizziness. He and his voiced understanding and are agreeable to plan of care. They deny any further questions at this time. Diagnostics: CBC, CMP, troponin, EKG, chest x-ray, orthostatic vital signs Therapeutics: Normal saline Potassium Impression: Dizziness Dehydration Hypokalemia Unmanaged hypertension Plan: 1. Please make sure you're drinking plenty of fluids throughout the day to your dehydration status. 2. Follow-up with Dr. Morataya as you have scheduled for tomorrow. Please address your hypokalemia (low potassium), blood pressure, and elevated BUN/ Creatine lab values. Bring your printed labs with you. 3. Return to the ED as needed and as discussed. Definitive disposition and diagnosis as appropriate pending reevaluation and review of above. Onset: Today Duration: Hour(s): Location: Reports: Generalized - Related Data Allergies Allergy/AdvReac Type Severity Reaction Status Date / Time latex Allergy Itching Verified 10/18/16 22:57 Home Meds: Home Meds Sertraline [Zoloft] 100 mg PO BEDTIME 05/31/14 [History] Acetaminophen [Acetaminophen ER] 650 mg PO DAILY PRN 01/06/16 [History] Bumetanide [Bumex] 3 mg PO ASDIRECTED 01/06/16 [History] Cetirizine HCl [Zyrtec] 10 mg PO ASDIRECTED PRN 01/06/16 [History] Labetalol HCl [Labetalol] 600 mg PO BID 01/06/16 [History] Metoprolol Tartrate [Lopressor] 100 mg PO BEDTIME 01/06/16 [History] Pantoprazole Sodium [Protonix] 40 mg PO DAILY 01/06/16 [History] Rivaroxaban [Xarelto] 20 mg PO DAILY 01/06/16 [History] Nitroglycerin 0.4 mg SL ASDIRECTED PRN #1 bottle 06/09/16 [Rx] Ondansetron [Zofran ODT] 4 mg PO TID PRN 06/09/16 [History] Bumetanide 2 mg PO QPM 10/19/16 [History] Canagliflozin [Invokana] 100 mg PO DAILY 10/19/16 [History] Doxycycline [Vibramycin] 10/19/16 [History] Fluticasone/Vilanterol [Breo Ellipta 100-25 MCG Inhalation Kit] 1 each IH DAILY 10/19/16 [History] Lisinopril 40 mg PO DAILY 10/19/16 [History] Mupirocin Oint [Bactroban Oint] 1 applic TOP TID PRN 10/19/16 [History] NIFEdipine [Adalat cc] 90 mg PO QAM 10/19/16 [History] [place]-3 Acid Ethyl Esters [Lovaza] 2,000 mg PO BID 10/19/16 [History] Potassium Chloride [Klor-Con M20] 10 meq PO DAILY 10/19/16 [History] tiZANidine [Zanaflex] 4 mg PO TID PRN 10/19/16 [History] Albuterol [Ventolin HFA] 2 puff INH BID 09/11/17 [History] Dapagliflozin Propanediol [Farxiga] 1 tab PO DAILY 09/11/17 [History] Enalapril Maleate 40 mg PO BEDTIME 09/11/17 [History] Phenylephrine HCl [Non-Pseudo Sinus Decongestant] 10 mg PO ASDIRECTED 09/11/17 [ History] traMADol HCl [Tramadol HCl] 50 mg PO TID PRN 09/11/17 [History] Past Medical History - Past Health History Medical/Surgical History: Denies Medical/Surgical History HEENT History: Reports: None Cardiovascular History: Reports: Afib, Hypertension Respiratory History: Reports: Sleep Apnea Other Respiratory History: on cpap Gastrointestinal History: Reports: Cholelithiasis, Hemorrhoids Other Genitourinary History: stage II kidney dse Musculoskeletal History: Reports: Back Pain, Chronic Other Musculoskeletal History: Pt complains of left knee pain x 2 weeks. Claimed to have taken Tylenol for it to no relief. Parcialy ruptured disc. Shoulder separature, fracture tail bone. Neurological History: Reports: Other (See Below) Other Neuro History: carpal tunnel Endocrine/Metabolic History: Reports: Diabetes, Type II Other Endocrine/Metabolic History: Pt reported he was diagnosed with Borderline DM. Blood sugar this morning was 170. Dermatologic History: Reports: Cellulitis - Infectious Disease History Infectious Disease History: Reports: Chicken Pox Other Infectious Disease History: Staph - Past Surgical History HEENT Surgical History: Reports: Tonsillectomy Cardiovascular Surgical History: Reports: None Respiratory Surgical History: Reports: None GI Surgical History: Reports: Cholecystectomy, Colostomy, EGD Male Surgical History: Reports: None Endocrine Surgical History: Reports: None Musculoskeletal Surgical History: Reports: Arthroscopic Knee, Carpal Tunnel, Other (See Below) Social & Family History - Family History Family Medical History: Noncontributory - Tobacco Use Smoking Status *Q: Never Smoker Second Hand Smoke Exposure: No - Caffeine Use Caffeine Use: Reports: Coffee, Soda, Tea Caffeine Use Comment: 2cups/day; 3-4sodas/day - Alcohol Use Days Per Week of Alcohol Use: 1 Number of Drinks Per Day: 2 Total Drinks Per Week: 2 - Recreational Drug Use Recreational Drug Use: No ED ROS GENERAL - Review of Systems Review Of Systems: ROS reveals no pertinent complaints other than HPI. ED EXAM, NEURO - Physical Exam Exam: See Below (See dictation) Course - Vital Signs Last Recorded V/S: Last Vital Signs Temp 96.9 F 09/11/17 11:49 Pulse 75 09/11/17 13:45 Resp 18 09/11/17 13:45 BP 171/115 H 09/11/17 13:45 Pulse Ox 95 09/11/17 13:45 Orthostatic Blood Pressure [ 140/95 Standing] Orthostatic Blood Pressure [ 163/119 Sitting] Orthostatic Blood Pressure [ 168/112 Supine] - Orders/Labs/Meds Orders: Active Orders 24 hr Category Date Time Status EKG Documentation Completion [RC] STAT Care 09/11/17 11:55 Active Orthostatic Vital Signs [RC] ASDIRECTED Care 09/11/17 11:56 Active Labs: Laboratory Tests 09/11/17 09/11/17 Range/Units 12:00 12:00 WBC 7.89 (4.0-11.0) K/uL RBC 4.60 (4.50-5.90) M/uL Hgb 13.9 (13.0-17.0) g/dL Hct 39.7 (38.0-50.0) % MCV 86.3 (80.0-98.0) fL MCH 30.2 (27.0-32.0) pg MCHC 35.0 (31.0-37.0) g/dL RDW Std Deviation 43.3 (28.0-62.0) fl RDW Coeff of [place] 14 (11.0-15.0) % Plt Count 242 (150-400) K/uL MPV 9.50 (7.40-12.00) fL Neut % (Auto) 62.3 (48.0-80.0) % Lymph % (Auto) 24.6 (16.0-40.0) % [place] % (Auto) 10.6 (0.0-15.0) % Eos % (Auto) 2.2 (0.0-7.0) % Baso % (Auto) 0.3 (0.0-1.5) % Neut # (Auto) 4.9 (1.4-5.7) K/uL Lymph # (Auto) 1.9 (0.6-2.4) K/uL [place] # (Auto) 0.8 (0.0-0.8) K/uL Eos # (Auto) 0.2 (0.0-0.7) K/uL Baso # (Auto) 0.0 (0.0-0.1) K/uL Nucleated RBC % 0.0 /100WBC Nucleated RBCs # 0 K/uL Sodium 141 (136-148) mmol/L Potassium 3.2 L (3.5-5.1) mmol/L Chloride 104 (98-107) mmol/L Carbon Dioxide 24.7 (21.0-32.0) mmol/L BUN 30 H (7.0-18.0) mg/dL Creatinine 1.6 H (0.8-1.3) mg/dL Est Cr Clr Drug Dosing 58.17 mL/min Estimated GFR (MDRD) 45.8 ml/min Glucose 199 H (74-106) mg/dL Calcium 9.3 (8.5-10.1) mg/dL Total Bilirubin 0.4 (0.2-1.0) mg/dL AST 40 H (15-37) IU/L ALT 39 (14-63) IU/L Alkaline Phosphatase 64 (46-116) U/L Troponin I < 0.050 (0.000-0.056) ng/mL Total Protein 7.0 (6.4-8.2) g/dL Albumin 3.3 L (3.4-5.0) g/dL Globulin 3.7 H (2.0-3.5) g/dL Albumin/Globulin Ratio 0.9 L (1.3-2.8) Meds: Medications Discontinued Medications Generic Name Dose Route Start Last Admin Trade Name Freq PRN Reason Stop Dose Admin Sodium Chloride 1,000 mls @ 999 mls/hr 09/11/17 11:55 09/11/17 12:03 Normal Saline IV 09/11/17 12:55 999 mls/hr STAT ONE Administration Potassium Chloride 40 meq 09/11/17 13:16 09/11/17 13:27 Klor-Con M20 PO 09/11/17 13:17 40 meq ONETIME ONE Administration Departure - Departure Time of Disposition: 13:32 Disposition: Home, Self-Care 01 Clinical Impression: Hypokalemia, Dehydration, Dizziness Hypertension Qualifiers: Hypertension type: essential hypertension Qualified Code(s): I10 - Essential ( primary) hypertension - Discharge Information Instructions: Dehydration, Adult, [id number], Hypertension, [id number], Dizziness, [id number] Referrals: Maggie Morataya DO [Primary Care Provider] - Forms: ED Department Discharge Additional Instructions: The following information is given to patients seen in the emergency department who are being discharged to home. This information is to outline your options for follow-up care. We provide all patients seen in our emergency department with a follow-up referral. The need for follow-up, as well as the timing and circumstances, are variable depending upon the specifics of your emergency department visit. If you don't have a primary care physician on staff, we will provide you with a referral. We always advise you to contact your personal physician following an emergency department visit to inform them of the circumstance of the visit and for follow-up with them and/or the need for any referrals to a consulting specialist. The emergency department will also refer you to a specialist when appropriate. This referral assures that you have the opportunity for follow-up care with a specialist. All of these measure are taken in an effort to provide you with optimal care, which includes your follow-up. Under all circumstances we always encourage you to contact your private physician who remains a resource for coordinating your care. When calling for follow-up care, please make the office aware that this follow-up is from your recent emergency room visit. If for any reason you are refused follow-up, please contact the [facility] Emergency Department at and asked to speak to the emergency department charge nurse. [facility] [address] [place] [address] [id number] [address] [id number] 1. Please make sure you're drinking plenty of fluids throughout the day to improve your dehydration status. 2. Follow-up with Dr. Morataya as you have scheduled for tomorrow. Please address your hypokalemia (low potassium), blood pressure, and elevated BUN/ Creatine lab values. Bring your printed labs with you. 3. Continue to take all your scheduled medications. 4. Return to the ED as needed and as discussed. - My Orders Last 24 Hours: My Active Orders 09/11/17 11:55 EKG Documentation Completion [RC] STAT 09/11/17 11:56 Orthostatic Vital Signs [RC] ASDIRECTED - Assessment/Plan Last 24 Hours: My Active Orders 09/11/17 11:55 EKG Documentation Completion [RC] STAT 09/11/17 11:56 Orthostatic Vital Signs [RC] ASDIRECTED
--- NOTE | 2017-09-11 12:45 | CR ---
EXAMINATION: Portable chest radiograph. HISTORY: Dizziness. FINDINGS: The trachea is midline. The cardiomediastinal silhouette is within normal limits. No pulmonary infilt rates, effusions or pneumothorax. Osseous structures appear unremarkable. IMPRESSION: No acute cardiopulmonary process.
[2017-09-11 12:57] LABS: CHLORIDE,CL 104 mmol/L (98-107); SODIUM,NA 141 mmol/L (136-148)
[2017-09-11] MEDS: Potassium Chloride 20 MEQ Tab.ER PO ONE (13:27)
[2017-09-11 13:50] VITALS: BP 171/115
== END 2017-09-11 13:45 | disposition home or self-care (01) ==
LOC: MW.ED 11:44
DX: I12.9 Hypertensive chronic kidney disease with stage 1 through stage 4 chronic kidney disease, or unspecified chronic kidney disease (principal); E11.22 Type 2 diabetes mellitus with diabetic chronic kidney disease; N18.2 Chronic kidney disease, stage 2 (mild); E86.0 Dehydration; E87.6 Hypokalemia; I48.91 Unspecified atrial fibrillation; Z79.899 Other long term (current) drug therapy; Z91.040 Latex allergy status
CPT/HCPCS: 71045; 80053; 84484; 85025; 93005; 96360; 99284; A9270; J7040

== ENCOUNTER 2017-09-15 10:19 | Observation (INO) | payer OTHER ==
[2017-09-15] MEDS ORDERED: Sodium Chloride 0.9% 1,000 ML IV ONE (10:27)
--- NOTE | 2017-09-15 10:33 | EDM.PDOC ---
ED HPI GENERAL MEDICAL PROBLEM - General Stated Complaint: DIZZY Time Seen by Provider: 09/15/17 10:23 Source of Information: Reports: Patient History Limitations: Reports: No Limitations - History of Present Illness INITIAL COMMENTS - FREE TEXT/NARRATIVE: HISTORY AND PHYSICAL: History of present illness: Patient is a 52-year-old male who presents to the emergency room today with complaints of dizziness and hypertension. He was seen in our emergency room on with similar symptoms. At that time he was offered admission but declined. He states that he saw his primary care provider 3 days ago, Dr. Morataya, which she has just is blood pressure medications by adding Clonidine 0.2 mg. He states that his primary care provider believes he had a "mini stroke ". States he has had mild dizziness since his last ER visit, but it was worse this morning. He denies any fever, chills, chest pain, shortness of breath. He denies any headache, change in vision, abdominal pain, nausea, vomiting, diarrhea or constipation. Denies any weakness or neurological deficiets. Patient has a medical history of type 2 diabetes, hypertension, stage II renal disease, atrial fibrillation. Oral diabetic medications, but does not routinely check his blood sugars. States he sees a Architectural Engineering Teacher for his stage II renal failure as he closely monitors his blood pressure and they are frequently adjusting his blood pressure medications. Patient takes Xarelto daily for his atrial fibrillation. Review of systems: As per history of present illness and below otherwise all systems reviewed and negative. Past medical history: As per history of present illness and as reviewed below otherwise noncontributory. Surgical history: As per history of present illness and as reviewed below otherwise noncontributory. Social history: No reported history of drug or alcohol abuse. Family history: As per history of present illness and as reviewed below otherwise noncontributory. Physical exam: General: Well-developed and well-nourished 52-year-old male. Alert and oriented. Nontoxic appearing and in no acute distress. HEENT: Atraumatic, normocephalic, pupils equal and reactive bilaterally, negative for conjunctival pallor or scleral icterus, mucous membranes moist, throat clear, neck supple, nontender, trachea midline. No drooling or trismus noted. No meningeal signs Lungs: Clear to auscultation, breath sounds equal bilaterally, chest nontender. Heart: S1S2, regular rate and rhythm without overt murmur Abdomen: Soft, nondistended, obese, nontender. Negative for masses or hepatosplenomegaly. Negative for costovertebral tenderness. Pelvis: Stable nontender. Genitourinary: Deferred. Rectal: Deferred. Skin: Intact, warm, dry. No lesions or rashes noted. Extremities: Atraumatic, negative for cords or calf pain. Neurovascular unremarkable. Neuro: Awake, alert, oriented. Cranial nerves II through XII unremarkable. Cerebellum unremarkable. Motor and sensory unremarkable throughout. Exam nonfocal. Notes: On patient's ER visit 09/11/2017: Patient was seen for dizziness with movement. That time he had uncontrolled hypertension but did not want his hypertensive medications adjusted (or to take any medications while here) due to the close relationship/management he had with his record keeper. Drink this visit he did have hypokalemia and elevated BUNs/creatinine. He declined admission as he did have a follow-up appointment with Dr. Morataya. Today's lab work was unremarkable. EKG shows a rate of 57, atrial fibrillation. These were shared with the patient. He states that he took double his blood pressure medication this morning prior to coming to the emergency room. Patient states that he would like to be admitted, she is uncomfortable going home feeling as dizzy as he does. Jj was consulted on this case. He will admit this patient for observation with telemetry. Diagnostics: CBC, CMP, troponin, EKG, one view chest, UA, orthostatic vital signs Therapeutics: IV fluid Impression: Dizziness hypertenion Plan: Observation patient admission to [facility] with telemetry Definitive disposition and diagnosis as appropriate pending reevaluation and review of above. Duration: Day(s): Location: Reports: Generalized Associated Symptoms: Denies: Confusion, Chest Pain, Cough, cough w sputum, Diaphoresis, Fever/Chills, Headaches, Loss of Appetite, Malaise, Nausea/Vomiting , Rash, Seizure, Shortness of Breath, Syncope, Weakness - Related Data Allergies Allergy/AdvReac Type Severity Reaction Status Date / Time latex Allergy Itching Verified 09/15/17 10:35 Home Meds: Home Meds Sertraline [Zoloft] 100 mg PO BEDTIME 05/31/14 [History] Acetaminophen [Acetaminophen ER] 650 mg PO DAILY PRN 01/06/16 [History] Bumetanide [Bumex] 3 mg PO ASDIRECTED 01/06/16 [History] Cetirizine HCl [Zyrtec] 10 mg PO ASDIRECTED PRN 01/06/16 [History] Labetalol HCl [Labetalol] 600 mg PO BID 01/06/16 [History] Metoprolol Tartrate [Lopressor] 100 mg PO BEDTIME 01/06/16 [History] Pantoprazole Sodium [Protonix] 40 mg PO DAILY 01/06/16 [History] Rivaroxaban [Xarelto] 20 mg PO DAILY 01/06/16 [History] Nitroglycerin 0.4 mg SL ASDIRECTED PRN #1 bottle 06/09/16 [Rx] Ondansetron [Zofran ODT] 4 mg PO TID PRN 06/09/16 [History] Bumetanide 2 mg PO QPM 10/19/16 [History] Canagliflozin [Invokana] 100 mg PO DAILY 10/19/16 [History] Doxycycline [Vibramycin] 10/19/16 [History] Fluticasone/Vilanterol [Breo Ellipta 100-25 MCG Inhalation Kit] 1 each IH DAILY 10/19/16 [History] Lisinopril 40 mg PO DAILY 10/19/16 [History] Mupirocin Oint [Bactroban Oint] 1 applic TOP TID PRN 10/19/16 [History] NIFEdipine [Adalat cc] 90 mg PO QAM 10/19/16 [History] [place]-3 Acid Ethyl Esters [Lovaza] 2,000 mg PO BID 10/19/16 [History] Potassium Chloride [Klor-Con M20] 10 meq PO DAILY 10/19/16 [History] tiZANidine [Zanaflex] 4 mg PO TID PRN 10/19/16 [History] Albuterol [Ventolin HFA] 2 puff INH BID 09/11/17 [History] Dapagliflozin Propanediol [Farxiga] 1 tab PO DAILY 09/11/17 [History] Enalapril Maleate 40 mg PO BEDTIME 09/11/17 [History] Phenylephrine HCl [Non-Pseudo Sinus Decongestant] 10 mg PO ASDIRECTED 09/11/17 [ History] traMADol HCl [Tramadol HCl] 50 mg PO TID PRN 09/11/17 [History] Past Medical History - Past Health History Medical/Surgical History: Denies Medical/Surgical History HEENT History: Reports: None Cardiovascular History: Reports: Afib, Hypertension Respiratory History: Reports: Sleep Apnea Other Respiratory History: on cpap Gastrointestinal History: Reports: Cholelithiasis, Hemorrhoids Other Genitourinary History: stage II kidney dse Musculoskeletal History: Reports: Back Pain, Chronic Other Musculoskeletal History: Pt complains of left knee pain x 2 weeks. Claimed to have taken Tylenol for it to no relief. Parcialy ruptured disc. Shoulder separature, fracture tail bone. Neurological History: Reports: Other (See Below) Other Neuro History: carpal tunnel Endocrine/Metabolic History: Reports: Diabetes, Type II Other Endocrine/Metabolic History: Pt reported he was diagnosed with Borderline DM. Blood sugar this morning was 170. Dermatologic History: Reports: Cellulitis - Infectious Disease History Infectious Disease History: Reports: Chicken Pox Other Infectious Disease History: Staph - Past Surgical History HEENT Surgical History: Reports: Tonsillectomy Cardiovascular Surgical History: Reports: None Respiratory Surgical History: Reports: None GI Surgical History: Reports: Cholecystectomy, Colostomy, EGD Male Surgical History: Reports: None Endocrine Surgical History: Reports: None Musculoskeletal Surgical History: Reports: Arthroscopic Knee, Carpal Tunnel, Other (See Below) Social & Family History - Family History Family Medical History: Noncontributory - Tobacco Use Smoking Status *Q: Never Smoker Second Hand Smoke Exposure: No - Caffeine Use Caffeine Use: Reports: Coffee, Soda, Tea Caffeine Use Comment: 2cups/day; 3-4sodas/day - Alcohol Use Days Per Week of Alcohol Use: 1 Number of Drinks Per Day: 2 Total Drinks Per Week: 2 - Recreational Drug Use Recreational Drug Use: No ED ROS GENERAL - Review of Systems Review Of Systems: ROS reveals no pertinent complaints other than HPI. ED EXAM, DIZZINESS - Physical Exam Exam: See Below (See dictation) Course - Vital Signs Last Recorded V/S: Last Vital Signs Temp 97.0 F 09/15/17 10:20 Pulse 73 09/15/17 10:20 Resp 20 09/15/17 10:20 BP 168/109 H 09/15/17 10:20 Pulse Ox 98 09/15/17 10:20 - Orders/Labs/Meds Orders: Active Orders 24 hr Category Date Time Status EKG Documentation Completion [RC] STAT Care 09/15/17 10:27 Active Chest 1V Frontal [CR] Stat Exams 09/15/17 10:27 Taken UA W/MICROSCOPIC [URIN] Stat Lab 09/15/17 11:25 Ordered Labs: Laboratory Tests 09/15/17 09/15/17 09/15/17 Range/Units 10:32 10:32 11:25 WBC 6.03 (4.0-11.0) K/uL RBC 4.87 (4.50-5.90) M/uL Hgb 14.7 (13.0-17.0) g/dL Hct 42.1 (38.0-50.0) % MCV 86.4 (80.0-98.0) fL MCH 30.2 (27.0-32.0) pg MCHC 34.9 (31.0-37.0) g/dL RDW Std Deviation 42.2 (28.0-62.0) fl RDW Coeff of [place] 13 (11.0-15.0) % Plt Count 262 (150-400) K/uL MPV 9.50 (7.40-12.00) fL Neut % (Auto) 61.9 (48.0-80.0) % Lymph % (Auto) 25.0 (16.0-40.0) % [place] % (Auto) 9.3 (0.0-15.0) % Eos % (Auto) 3.3 (0.0-7.0) % Baso % (Auto) 0.5 (0.0-1.5) % Neut # (Auto) 3.7 (1.4-5.7) K/uL Lymph # (Auto) 1.5 (0.6-2.4) K/uL [place] # (Auto) 0.6 (0.0-0.8) K/uL Eos # (Auto) 0.2 (0.0-0.7) K/uL Baso # (Auto) 0.0 (0.0-0.1) K/uL Nucleated RBC % 0.0 /100WBC Nucleated RBCs # 0 K/uL Sodium 138 (136-148) mmol/L Potassium 3.6 (3.5-5.1) mmol/L Chloride 101 (98-107) mmol/L Carbon Dioxide 24.4 (21.0-32.0) mmol/L BUN 21 H (7.0-18.0) mg/dL Creatinine 1.3 (0.8-1.3) mg/dL Est Cr Clr Drug Dosing 49.73 mL/min Estimated GFR (MDRD) 58.2 ml/min Glucose 305 H (74-106) mg/dL Calcium 9.3 (8.5-10.1) mg/dL Total Bilirubin 0.2 (0.2-1.0) mg/dL AST 17 (15-37) IU/L ALT 29 (14-63) IU/L Alkaline Phosphatase 70 (46-116) U/L Troponin I < 0.050 (0.000-0.056) ng/mL Total Protein 7.3 (6.4-8.2) g/dL Albumin 3.3 L (3.4-5.0) g/dL Globulin 4.0 H (2.0-3.5) g/dL Albumin/Globulin Ratio 0.8 L (1.3-2.8) Urine Color YELLOW Urine Appearance CLEAR Urine pH 6.0 (5.0-8.0) Ur Specific [place] 1.010 (1.001-1.035) Urine Protein 100 (NEGATIVE) mg/dL Urine Glucose (UA) >=1000 (NEGATIVE) mg/dL Urine Ketones NEGATIVE (NEGATIVE) mg/dL Urine Occult Blood NEGATIVE (NEGATIVE) Urine Nitrite NEGATIVE (NEGATIVE) Urine Bilirubin NEGATIVE (NEGATIVE) Urine Urobilinogen 0.2 (<2.0) EU/dL Ur Leukocyte Esterase NEGATIVE (NEGATIVE) Meds: Medications Discontinued Medications Generic Name Dose Route Start Last Admin Trade Name Freq PRN Reason Stop Dose Admin Sodium Chloride 1,000 mls @ 999 mls/hr 09/15/17 10:27 09/15/17 10:45 Normal Saline IV 09/15/17 11:27 999 mls/hr STAT ONE Administration Departure - Departure Time of Disposition: 11:40 Disposition: Refer to Observation Clinical Impression: Dizziness Hypertension Qualifiers: Hypertension type: essential hypertension Qualified Code(s): I10 - Essential ( primary) hypertension - Discharge Information Referrals: Maggie Morataya DO [Primary Care Provider] - - My Orders Last 24 Hours: My Active Orders 09/15/17 10:27 EKG Documentation Completion [RC] STAT Chest 1V Frontal [CR] Stat 09/15/17 11:25 UA W/MICROSCOPIC [URIN] Stat - Assessment/Plan Last 24 Hours: My Active Orders 09/15/17 10:27 EKG Documentation Completion [RC] STAT Chest 1V Frontal [CR] Stat 09/15/17 11:25 UA W/MICROSCOPIC [URIN] Stat
[2017-09-15 11:02] LABS: CHLORIDE,CL 101 mmol/L (98-107); SODIUM,NA 138 mmol/L (136-148)
--- NOTE | 2017-09-15 13:50 | PCM.HP ---
H&P History of Present Illness - General Admit Problem/Dx: Admission Diagnosis/Problem Admission Diagnosis/Problem Dizziness - History of Present Illness Initial Comments - Free Text/Narative: 52 yo male with pmh of CHF, HTN, CKD, atrial fbrillation who presents with several day history of dizziness. Patient was seen in the ED on the for dizziness and noted to have elevated blood pressure. He followed up with Dr. Morataya and was placed on clonidine. Patient has noted BP has stayed elevated at above 200 systolic. He took 0.4mg of clonidine this morning. He had another dizzy spell while in the ED today. - Related Data Allergies/Adverse Reactions: Allergies Allergy/AdvReac Type Severity Reaction Status Date / Time latex Allergy Itching Verified 09/15/17 10:35 Home Medications: Home Meds Sertraline [Zoloft] 100 mg PO BEDTIME 05/31/14 [History] Acetaminophen [Acetaminophen ER] 650 mg PO DAILY PRN 01/06/16 [History] Bumetanide [Bumex] 3 mg PO QAM 01/06/16 [History] Cetirizine HCl [Zyrtec] 10 mg PO ASDIRECTED PRN 01/06/16 [History] Labetalol HCl [Labetalol] 600 mg PO BID 01/06/16 [History] Metoprolol Tartrate [Lopressor] 100 mg PO DAILY 01/06/16 [History] Rivaroxaban [Xarelto] 20 mg PO WITHDINNER 01/06/16 [History] Nitroglycerin 0.4 mg SL ASDIRECTED PRN #1 bottle 06/09/16 [Rx] Ondansetron [Zofran ODT] 4 mg PO TID PRN 06/09/16 [History] Bumetanide 2 mg PO QPM 10/19/16 [History] Mupirocin Oint [Bactroban Oint] 1 applic TOP TID PRN 10/19/16 [History] NIFEdipine [Adalat cc] 90 mg PO ACBREAKFAST 10/19/16 [History] [place]-3 Acid Ethyl Esters [Lovaza] 2,000 mg PO BID 10/19/16 [History] Potassium Chloride [Klor-Con M20] 10 meq PO DAILY 10/19/16 [History] Albuterol [Ventolin HFA] 2 puff INH BID 09/11/17 [History] Dapagliflozin Propanediol [Farxiga] 1 tab PO DAILY 09/11/17 [History] Enalapril Maleate 40 mg PO BEDTIME 09/11/17 [History] traMADol HCl [Tramadol HCl] 50 mg PO TID PRN 09/11/17 [History] cloNIDine [Catapres] 0.2 mg PO BID PRN 09/15/17 [History] tiZANidine HCl [Tizanidine HCl] 4 mg PO TID PRN 09/15/17 [History] Past Medical History - Past Health History Medical/Surgical History: Denies Medical/Surgical History HEENT History: Reports: None Cardiovascular History: Reports: Afib, Hypertension Respiratory History: Reports: Sleep Apnea Other Respiratory History: on cpap Gastrointestinal History: Reports: Cholelithiasis, Hemorrhoids Other Genitourinary History: stage II kidney dse Musculoskeletal History: Reports: Back Pain, Chronic Other Musculoskeletal History: Pt complains of left knee pain x 2 weeks. Claimed to have taken Tylenol for it to no relief. Parcialy ruptured disc. Shoulder separature, fracture tail bone. Neurological History: Reports: Other (See Below) Other Neuro History: carpal tunnel Endocrine/Metabolic History: Reports: Diabetes, Type II Other Endocrine/Metabolic History: Pt reported he was diagnosed with Borderline DM. Blood sugar this morning was 170. Dermatologic History: Reports: Cellulitis - Infectious Disease History Infectious Disease History: Reports: Chicken Pox Other Infectious Disease History: Staph - Past Surgical History HEENT Surgical History: Reports: Tonsillectomy Cardiovascular Surgical History: Reports: None Respiratory Surgical History: Reports: None GI Surgical History: Reports: Cholecystectomy, Colostomy, EGD Male Surgical History: Reports: None Endocrine Surgical History: Reports: None Musculoskeletal Surgical History: Reports: Arthroscopic Knee, Carpal Tunnel, Other (See Below) Social & Family History - Family History Family Medical History: Noncontributory - Tobacco Use Smoking Status *Q: Never Smoker Second Hand Smoke Exposure: No - Caffeine Use Caffeine Use: Reports: Coffee, Soda Caffeine Use Comment: 2cups/day; 3-4sodas/day - Alcohol Use Days Per Week of Alcohol Use: 1 Number of Drinks Per Day: 2 Total Drinks Per Week: 2 - Recreational Drug Use Recreational Drug Use: No H&P Review of Systems - Review of Systems: Review Of Systems: ROS reveals no pertinent complaints other than HPI. Exam - Exam Exam: See Below - Vital Signs Vital Signs: Last Vital Signs Temp 35.7 C 09/15/17 12:18 Pulse 61 09/15/17 12:18 Resp 18 09/15/17 12:18 BP 161/97 H 09/15/17 12:18 Pulse Ox 98 09/15/17 12:18 Weight: 111.13 kg - Exam General: Alert, Oriented Lungs: Clear to Auscultation, Normal Respiratory Effort Cardiovascular: Regular Rate, Regular Rhythm GI/Abdominal Exam: Soft, Non-Tender Extremities: Non-Tender, No Pedal Edema Skin: Warm, Dry, Intact Neurological: Cranial Nerves Intact, Reflexes Equal Bilateral, Strength Equal Bilateral, Normal Gait, Normal Speech, Normal Tone, Sensation Intact, Other ( able to hop on two feet, stand on one, walk backwards without difficulty). No: Focal Deficit - Patient Data Lab Results Last 24 hrs: Laboratory Results - last 24 hr 09/15/17 09/15/17 09/15/17 Range/Units 10:32 10:32 11:25 WBC 6.03 (4.0-11.0) K/uL RBC 4.87 (4.50-5.90) M/uL Hgb 14.7 (13.0-17.0) g/dL Hct 42.1 (38.0-50.0) % MCV 86.4 (80.0-98.0) fL MCH 30.2 (27.0-32.0) pg MCHC 34.9 (31.0-37.0) g/dL RDW Std Deviation 42.2 (28.0-62.0) fl RDW Coeff of [place] 13 (11.0-15.0) % Plt Count 262 (150-400) K/uL MPV 9.50 (7.40-12.00) fL Neut % (Auto) 61.9 (48.0-80.0) % Lymph % (Auto) 25.0 (16.0-40.0) % [place] % (Auto) 9.3 (0.0-15.0) % Eos % (Auto) 3.3 (0.0-7.0) % Baso % (Auto) 0.5 (0.0-1.5) % Neut # (Auto) 3.7 (1.4-5.7) K/uL Lymph # (Auto) 1.5 (0.6-2.4) K/uL [place] # (Auto) 0.6 (0.0-0.8) K/uL Eos # (Auto) 0.2 (0.0-0.7) K/uL Baso # (Auto) 0.0 (0.0-0.1) K/uL Nucleated RBC % 0.0 /100WBC Nucleated RBCs # 0 K/uL Sodium 138 (136-148) mmol/L Potassium 3.6 (3.5-5.1) mmol/L Chloride 101 (98-107) mmol/L Carbon Dioxide 24.4 (21.0-32.0) mmol/L BUN 21 H (7.0-18.0) mg/dL Creatinine 1.3 (0.8-1.3) mg/dL Est Cr Clr Drug Dosing 49.73 mL/min Estimated GFR (MDRD) 58.2 ml/min Glucose 305 H (74-106) mg/dL Calcium 9.3 (8.5-10.1) mg/dL Total Bilirubin 0.2 (0.2-1.0) mg/dL AST 17 (15-37) IU/L ALT 29 (14-63) IU/L Alkaline Phosphatase 70 (46-116) U/L Troponin I < 0.050 (0.000-0.056) ng/mL Total Protein 7.3 (6.4-8.2) g/dL Albumin 3.3 L (3.4-5.0) g/dL Globulin 4.0 H (2.0-3.5) g/dL Albumin/Globulin Ratio 0.8 L (1.3-2.8) Urine Color YELLOW Urine Appearance CLEAR Urine pH 6.0 (5.0-8.0) Ur Specific [place] 1.010 (1.001-1.035) Urine Protein 100 (NEGATIVE) mg/dL Urine Glucose (UA) >=1000 (NEGATIVE) mg/dL Urine Ketones NEGATIVE (NEGATIVE) mg/dL Urine Occult Blood NEGATIVE (NEGATIVE) Urine Nitrite NEGATIVE (NEGATIVE) Urine Bilirubin NEGATIVE (NEGATIVE) Urine Urobilinogen 0.2 (<2.0) EU/dL Ur Leukocyte Esterase NEGATIVE (NEGATIVE) Urine RBC 0-1 (0-2/HPF) Urine WBC 0-1 (0-5/HPF) Ur Epithelial Cells RARE (NONE-FEW) Urine Bacteria RARE (NEGATIVE) Result Diagrams: 09/16/17 05:29 09/16/17 05:29 Problem List Initiated/Reviewed/Updated: Yes Orders Last 24hrs: Active Orders 24 hr Category Date Time Status Admission Status [Patient Status] [ADT] Stat ADT 09/15/17 11:43 Active Blood Glucose Check, Bedside [RC] TIDMEALS Care 09/15/17 13:42 Ordered EKG Documentation Completion [RC] STAT Care 09/15/17 10:27 Active Oxygen Therapy [RC] PRN Care 09/15/17 13:42 Ordered Telemetry Monitoring [Cardiac Monitoring] [RC] . Care 09/15/17 11:54 Active DIRECTED Up ad [place]ieves [RC] ASDIRECTED Care 09/15/17 13:42 Ordered VTE/DVT Education [RC] PER UNIT ROUTINE Care 09/15/17 13:42 Ordered Vital Signs [RC] Q4H Care 09/15/17 13:42 Ordered [place] [employer] Diet [DIET] Diet 09/15/17 Breakfast Ordered Chest 1V Frontal [CR] Stat Exams 09/15/17 10:27 Taken BASIC METABOLIC PANEL,BMP [CHEM] AM Lab 09/16/17 05:11 Ordered CBC W/O DIFF,HEMOGRAM [HEME] AM Lab 09/16/17 05:11 Ordered GLYCOSYLATED HEMOGLOBIN,HGBA1C [CHEM] Routine Lab 09/15/17 13:44 Ordered UA W/MICROSCOPIC [URIN] Stat Lab 09/15/17 11:25 Ordered Bumetanide [Bumetanide] Med 09/15/17 18:00 Ordered 2 mg PO QPM Enalapril Maleate [Enalapril Maleate] Med 09/15/17 21:00 Ordered 40 mg PO BEDTIME Insulin Aspart [NovoLOG] Med 09/15/17 17:00 Ordered See Protocol SUBCUT TIDAC Labetalol HCl [Labetalol] Med 09/15/17 21:00 Ordered 600 mg PO BID Metoprolol Tartrate Med 09/15/17 21:00 Ordered 100 mg PO BEDTIME NIFEdipine [Adalat cc] Med 09/16/17 09:00 Ordered 90 mg PO QAM Rivaroxaban [Xarelto] Med 09/16/17 09:00 Ordered 20 mg PO DAILY Resuscitation Status Routine Resus Stat 09/15/17 13:42 Ordered Medication Orders Non-Formulary Medication (Bumetanide [Bumetanide]) 2 mg PO QPM ROGERIO Non-Formulary Medication (Enalapril Maleate [Enalapril Maleate]) 40 mg PO BEDTIME ROGERIO Non-Formulary Medication (Labetalol Hcl [Labetalol]) 600 mg PO BID ROGERIO Non-Formulary Medication (Metoprolol Tartrate) 100 mg PO BEDTIME ROGERIO Non-Formulary Medication (Nifedipine [Adalat Cc]) 90 mg PO QAM ROGERIO Non-Formulary Medication (Rivaroxaban [Xarelto]) 20 mg PO DAILY ROGERIO Assessment/Plan Comment:: 52 yo male who presents with dizziness. ED provider recommended observation. Patient currently is asymptomatic. Will monitor on telemetry.
[2017-09-15] MEDS: Bumetanide 1 MG Tab PO SCH (17:36)
[2017-09-15] MEDS: Insulin Aspart 100 Units/ML 3 ML Pen SUBCUT SCH (17:37)
[2017-09-15] MEDS ORDERED: Metoprolol Tartrate 50 MG Tab PO SCH (21:00)
[2017-09-15] MEDS ORDERED: Sertraline 100 MG Tab PO SCH (21:00)
[2017-09-15] MEDS: Labetalol 100 MG Tab PO SCH (21:39)
[2017-09-15] MEDS: cloNIDine 0.1 MG Tab PO SCH (21:40)
[2017-09-16 06:16] LABS: CHLORIDE,CL 102 mmol/L (98-107); SODIUM,NA 140 mmol/L (136-148)
[2017-09-16] MEDS: Insulin Aspart 100 Units/ML 3 ML Pen SUBCUT SCH ×2 (07:29→11:58)
[2017-09-16] MEDS: cloNIDine 0.1 MG Tab PO SCH (08:02)
[2017-09-16] MEDS: Labetalol 100 MG Tab PO SCH (08:03)
--- NOTE | 2017-09-16 08:15 | PCM.PN ---
- General Info Date of Service: 09/16/17 Admission Dx/Problem (Free Text): Admission Diagnosis/Problem Admission Diagnosis/Problem Dizziness Subjective Update: Having a headache this morning with elevated BP, 200/100. No chest pain or SOB. Very frustrated and anxious regarding BPs and why they are not coming down and staying down. Functional Status: Reports: Pain Controlled, Tolerating Diet, Ambulating, Urinating - Review of Systems HEENT: Reports: Headaches. Denies: Sore Throat, Visual Changes Pulmonary: Reports: No Symptoms. Denies: Shortness of Breath, Cough, Sputum Cardiovascular: Denies: Chest Pain, Dyspnea on Exertion, Lightheadedness Gastrointestinal: Reports: No Symptoms Genitourinary: Reports: No Symptoms. Denies: Dysuria, Frequency Neurological: Reports: No Symptoms. Denies: Confusion, Headache, Numbness Psychiatric: Reports: No Symptoms. Denies: Confusion, Depression - Patient Data Vitals - Most Recent: Last Vital Signs Temp 97.2 F 09/16/17 07:58 Pulse 73 09/16/17 08:03 Resp 18 09/16/17 07:58 BP 196/119 H 09/16/17 08:03 Pulse Ox 96 09/16/17 07:58 Weight - Most Recent: 111.13 kg I&O - Last 24 Hours: Intake & Output 09/15/17 09/16/17 09/16/17 22:59 06:59 14:59 Intake Total 150 2400 Output Total 1150 1750 Balance -1000 650 Lab Results Last 24 Hours: Laboratory Results - last 24 hr 09/15/17 09/15/17 09/15/17 Range/Units 10:32 10:32 10:32 WBC 6.03 (4.0-11.0) K/uL RBC 4.87 (4.50-5.90) M/uL Hgb 14.7 (13.0-17.0) g/dL Hct 42.1 (38.0-50.0) % MCV 86.4 (80.0-98.0) fL MCH 30.2 (27.0-32.0) pg MCHC 34.9 (31.0-37.0) g/dL RDW Std Deviation 42.2 (28.0-62.0) fl RDW Coeff of [place] 13 (11.0-15.0) % Plt Count 262 (150-400) K/uL MPV 9.50 (7.40-12.00) fL Neut % (Auto) 61.9 (48.0-80.0) % Lymph % (Auto) 25.0 (16.0-40.0) % [place] % (Auto) 9.3 (0.0-15.0) % Eos % (Auto) 3.3 (0.0-7.0) % Baso % (Auto) 0.5 (0.0-1.5) % Neut # (Auto) 3.7 (1.4-5.7) K/uL Lymph # (Auto) 1.5 (0.6-2.4) K/uL [place] # (Auto) 0.6 (0.0-0.8) K/uL Eos # (Auto) 0.2 (0.0-0.7) K/uL Baso # (Auto) 0.0 (0.0-0.1) K/uL Nucleated RBC % 0.0 /100WBC Nucleated RBCs # 0 K/uL Sodium 138 (136-148) mmol/L Potassium 3.6 (3.5-5.1) mmol/L Chloride 101 (98-107) mmol/L Carbon Dioxide 24.4 (21.0-32.0) mmol/L BUN 21 H (7.0-18.0) mg/dL Creatinine 1.3 (0.8-1.3) mg/dL Est Cr Clr Drug Dosing 49.73 mL/min Estimated GFR (MDRD) 58.2 ml/min Glucose 305 H (74-106) mg/dL POC Glucose (60-110) mg/dL Hemoglobin A1c 7.6 H (4.5-6.2) % Calcium 9.3 (8.5-10.1) mg/dL Total Bilirubin 0.2 (0.2-1.0) mg/dL AST 17 (15-37) IU/L ALT 29 (14-63) IU/L Alkaline Phosphatase 70 (46-116) U/L Troponin I < 0.050 (0.000-0.056) ng/mL Total Protein 7.3 (6.4-8.2) g/dL Albumin 3.3 L (3.4-5.0) g/dL Globulin 4.0 H (2.0-3.5) g/dL Albumin/Globulin Ratio 0.8 L (1.3-2.8) Urine Color Urine Appearance Urine pH (5.0-8.0) Ur Specific [place] (1.001-1.035) Urine Protein (NEGATIVE) mg/dL Urine Glucose (UA) (NEGATIVE) mg/dL Urine Ketones (NEGATIVE) mg/dL Urine Occult Blood (NEGATIVE) Urine Nitrite (NEGATIVE) Urine Bilirubin (NEGATIVE) Urine Urobilinogen (<2.0) EU/dL Ur Leukocyte Esterase (NEGATIVE) Urine RBC (0-2/HPF) Urine WBC (0-5/HPF) Ur Epithelial Cells (NONE-FEW) Urine Bacteria (NEGATIVE) 09/15/17 09/15/17 09/16/17 Range/Units 11:25 16:47 05:29 WBC 8.05 (4.0-11.0) K/uL RBC 4.95 (4.50-5.90) M/uL Hgb 15.1 (13.0-17.0) g/dL Hct 42.5 (38.0-50.0) % MCV 85.9 (80.0-98.0) fL MCH 30.5 (27.0-32.0) pg MCHC 35.5 (31.0-37.0) g/dL RDW Std Deviation 41.3 (28.0-62.0) fl RDW Coeff of [place] 13 (11.0-15.0) % Plt Count 237 (150-400) K/uL MPV 9.70 (7.40-12.00) fL Neut % (Auto) (48.0-80.0) % Lymph % (Auto) (16.0-40.0) % Haskell % (Auto) (0.0-15.0) % Eos % (Auto) (0.0-7.0) % Baso % (Auto) (0.0-1.5) % Neut # (Auto) (1.4-5.7) K/uL Lymph # (Auto) (0.6-2.4) K/uL [place] # (Auto) (0.0-0.8) K/uL Eos # (Auto) (0.0-0.7) K/uL Baso # (Auto) (0.0-0.1) K/uL Nucleated RBC % 0.0 /100WBC Nucleated RBCs # 0 K/uL Sodium (136-148) mmol/L Potassium (3.5-5.1) mmol/L Chloride (98-107) mmol/L Carbon Dioxide (21.0-32.0) mmol/L BUN (7.0-18.0) mg/dL Creatinine (0.8-1.3) mg/dL Est Cr Clr Drug Dosing mL/min Estimated GFR (MDRD) ml/min Glucose (74-106) mg/dL POC Glucose 224 H (60-110) mg/dL Hemoglobin A1c (4.5-6.2) % Calcium (8.5-10.1) mg/dL Total Bilirubin (0.2-1.0) mg/dL AST (15-37) IU/L ALT (14-63) IU/L Alkaline Phosphatase (46-116) U/L Troponin I (0.000-0.056) ng/mL Total Protein (6.4-8.2) g/dL Albumin (3.4-5.0) g/dL Globulin (2.0-3.5) g/dL Albumin/Globulin Ratio (1.3-2.8) Urine Color YELLOW Urine Appearance CLEAR Urine pH 6.0 (5.0-8.0) Ur Specific [place] 1.010 (1.001-1.035) Urine Protein 100 (NEGATIVE) mg/dL Urine Glucose (UA) >=1000 (NEGATIVE) mg/dL Urine Ketones NEGATIVE (NEGATIVE) mg/dL Urine Occult Blood NEGATIVE (NEGATIVE) Urine Nitrite NEGATIVE (NEGATIVE) Urine Bilirubin NEGATIVE (NEGATIVE) Urine Urobilinogen 0.2 (<2.0) EU/dL Ur Leukocyte Esterase NEGATIVE (NEGATIVE) Urine RBC 0-1 (0-2/HPF) Urine WBC 0-1 (0-5/HPF) Ur Epithelial Cells RARE (NONE-FEW) Urine Bacteria RARE (NEGATIVE) 09/16/17 09/16/17 Range/Units 05:29 06:22 WBC (4.0-11.0) K/uL RBC (4.50-5.90) M/uL Hgb (13.0-17.0) g/dL Hct (38.0-50.0) % MCV (80.0-98.0) fL MCH (27.0-32.0) pg MCHC (31.0-37.0) g/dL RDW Std Deviation (28.0-62.0) fl RDW Coeff of [place] (11.0-15.0) % Plt Count (150-400) K/uL MPV (7.40-12.00) fL Neut % (Auto) (48.0-80.0) % Lymph % (Auto) (16.0-40.0) % Haskell % (Auto) (0.0-15.0) % Eos % (Auto) (0.0-7.0) % Baso % (Auto) (0.0-1.5) % Neut # (Auto) (1.4-5.7) K/uL Lymph # (Auto) (0.6-2.4) K/uL [place] # (Auto) (0.0-0.8) K/uL Eos # (Auto) (0.0-0.7) K/uL Baso # (Auto) (0.0-0.1) K/uL Nucleated RBC % /100WBC Nucleated RBCs # K/uL Sodium 140 (136-148) mmol/L Potassium 3.7 (3.5-5.1) mmol/L Chloride 102 (98-107) mmol/L Carbon Dioxide 26.9 (21.0-32.0) mmol/L BUN 20 H (7.0-18.0) mg/dL Creatinine 1.1 (0.8-1.3) mg/dL Est Cr Clr Drug Dosing 84.62 mL/min Estimated GFR (MDRD) > 60.0 ml/min Glucose 184 H (74-106) mg/dL POC Glucose 166 H (60-110) mg/dL Hemoglobin A1c (4.5-6.2) % Calcium 9.0 (8.5-10.1) mg/dL Total Bilirubin (0.2-1.0) mg/dL AST (15-37) IU/L ALT (14-63) IU/L Alkaline Phosphatase (46-116) U/L Troponin I (0.000-0.056) ng/mL Total Protein (6.4-8.2) g/dL Albumin (3.4-5.0) g/dL Globulin (2.0-3.5) g/dL Albumin/Globulin Ratio (1.3-2.8) Urine Color Urine Appearance Urine pH (5.0-8.0) Ur Specific [place] (1.001-1.035) Urine Protein (NEGATIVE) mg/dL Urine Glucose (UA) (NEGATIVE) mg/dL Urine Ketones (NEGATIVE) mg/dL Urine Occult Blood (NEGATIVE) Urine Nitrite (NEGATIVE) Urine Bilirubin (NEGATIVE) Urine Urobilinogen (<2.0) EU/dL Ur Leukocyte Esterase (NEGATIVE) Urine RBC (0-2/HPF) Urine WBC (0-5/HPF) Ur Epithelial Cells (NONE-FEW) Urine Bacteria (NEGATIVE) Med Orders - Current: Current Medications Bumetanide (Bumex) 2 mg PO DAILY@1600 [facility] Last Admin: 09/15/17 17:36 Dose: 2 mg Clonidine HCl (Catapres) 0.2 mg PO BID [facility] Last Admin: 09/16/17 08:02 Dose: 0.2 mg Enalapril Maleate (Vasotec) 40 mg PO BEDTIME [facility] Last Admin: 09/15/17 21:38 Dose: 40 mg Insulin Aspart (Novolog) 0 unit SUBCUT TIDAC [facility]; Protocol Last Admin: 09/16/17 07:29 Dose: 2 units Labetalol HCl (Normodyne) 600 mg PO BID [facility] Last Admin: 09/16/17 08:03 Dose: 600 mg Metoprolol Tartrate (Lopressor) 100 mg PO BEDTIME [facility] Last Admin: 09/15/17 21:40 Dose: 100 mg Nifedipine (Procardia Xl) 90 mg PO DAILY [facility] Last Admin: 09/16/17 08:03 Dose: 90 mg Rivaroxaban (Xarelto) 20 mg PO DAILY@1730 [facility] Sertraline HCl (Zoloft) 100 mg PO BEDTIME [facility] Last Admin: 09/15/17 21:41 Dose: 100 mg Discontinued Medications Sodium Chloride (Normal Saline) 1,000 mls @ 999 mls/hr IV STAT ONE Stop: 09/15/17 11:27 Last Admin: 09/15/17 10:45 Dose: 999 mls/hr - Exam General: Alert, Oriented, Cooperative, No Acute Distress Neck: Supple Lungs: Clear to Auscultation, Normal Respiratory Effort Cardiovascular: Regular Rate, Regular Rhythm Back Exam: Normal Inspection, Full Range of Motion Extremities: Normal Inspection, Normal Range of Motion, Non-Tender, No Pedal Edema, Normal Capillary Refill Neurological: No New Focal Deficit Psy/Mental Status: Alert, Normal Affect, Normal Mood - Problem List & Annotations (1) CKD (chronic kidney disease) stage 2, GFR 60-89 ml/min SNOMED Code(s): 044815146 Code(s): N18.2 - CHRONIC KIDNEY DISEASE, STAGE 2 (MILD) Status: Acute Current Visit: Yes (2) Afib SNOMED Code(s): 47335206 Code(s): I48.91 - UNSPECIFIED ATRIAL FIBRILLATION Status: Acute Current Visit: Yes (3) Anticoagulation adequate SNOMED Code(s): 078612263, 258674525 Code(s): Z79.01 - [employer] (CURRENT) USE OF ANTICOAGULANTS Status: Acute Current Visit: Yes (4) Dizziness SNOMED Code(s): 701974794, 275226029 Code(s): R42 - DIZZINESS AND GIDDINESS Status: Acute Current Visit: Yes (5) Hypertension SNOMED Code(s): 81574141 Code(s): I10 - ESSENTIAL (PRIMARY) HYPERTENSION Status: Acute Current Visit: Yes Qualifiers: Hypertension type: essential hypertension Qualified Code(s): I10 - Essential (primary) hypertension - Plan Plan:: 52 yo male who presents with dizziness. ED provider recommended observation. Patient currently is asymptomatic. Will monitor on telemetry.
[2017-09-16] MEDS ORDERED: NIFEdipine 30 MG Tab.ER PO SCH (09:00)
[2017-09-16] MEDS ORDERED: Bumetanide 1 MG Tab PO SCH (09:00)
[2017-09-16] MEDS ORDERED: Acetaminophen 325 MG Tab PO PRN (09:16)
[2017-09-16] MEDS ORDERED: Chlorthalidone 25 MG Tab PO SCH (12:00)
--- NOTE | 2017-09-16 13:25 | CR ---
EXAM DATE: 09/15/17 PATIENT'S AGE: 52 Patient: ROSY CHUNG Facility: [place], [place] Site . Site : [id number] Study: XRay Chest [id number]/15/2018 11:04:10 AM Ordering Physician: Doctor Albright Final Report: HISTORY: High blood pressure, dizziness. TECHNIQUE: One view of the chest. COMPARISON: 09/11/2017. FINDINGS: Cardiac size is prominent but exaggerated by the portable AP intact. There is no consolidation or pulmonary edema. No pneumothorax. No moderate or large pleural effusion. IMPRESSION: 1. No acute lung infiltrate or pulmonary edema. 2. Cardiac size is prominent but exaggerated by technique. Dictated by Jakub Jimenez MD @ 09/15/2017 11:14:12 AM Dictated by: Jakub Jimenez MD @ 09/15/2017 11:14:16 (Electronic Signature) Report Signed by Proxy. [email or web address]
--- NOTE | 2017-09-16 15:12 | PCM.DCSUM1 ---
Discharge Summary - Hospital Course Brief History: 52 yo male with pmh of CHF, HTN, CKD, atrial fbrillation who presents with several day history of dizziness. Patient was seen in the ED on the for dizziness and noted to have elevated blood pressure. He followed up with Dr. Morataya and was placed on clonidine. Patient has noted BP has stayed elevated at above 200 systolic. He took 0.4mg of clonidine this morning. He had another dizzy spell while in the ED today. - Discharge Data Discharge Date: 09/16/17 Discharge Disposition: Home, Self-Care 01 Condition: Good - Discharge Diagnosis/Problem(s) (1) CKD (chronic kidney disease) stage 2, GFR 60-89 ml/min SNOMED Code(s): 180583766 ICD Code: N18.2 - CHRONIC KIDNEY DISEASE, STAGE 2 (MILD) Status: Acute Current Visit: Yes (2) Afib SNOMED Code(s): 53321505 ICD Code: I48.91 - UNSPECIFIED ATRIAL FIBRILLATION Status: Acute Current Visit: Yes (3) Anticoagulation adequate SNOMED Code(s): 102268024, 677071741 ICD Code: Z79.01 - LONGTERM (CURRENT) USE OF ANTICOAGULANTS Status: Acute Current Visit: Yes (4) Dizziness SNOMED Code(s): 873763439, 759734543 ICD Code: R42 - DIZZINESS AND GIDDINESS Status: Acute Current Visit: Yes (5) Hypertension SNOMED Code(s): 07072610 ICD Code: I10 - ESSENTIAL (PRIMARY) HYPERTENSION Status: Acute Current Visit: Yes Qualifiers: Hypertension type: essential hypertension Qualified Code(s): I10 - Essential (primary) hypertension - Patient Instructions Diet: Heart Healthy Diet, Low Sodium, Diabetic Diet Activity: No Strenuous Activities Driving: May Drive Today Showering/Bathing: May Shower Notify Provider of: Fever, Increased Pain, Swelling and Redness, Drainage, Nausea and/or Vomiting - Discharge Plan Prescriptions/Med Rec: Chlorthalidone 25 mg PO DAILY #30 tablet Home Medications: Home Meds Sertraline [Zoloft] 100 mg PO BEDTIME 05/31/14 [History] Acetaminophen [Acetaminophen ER] 650 mg PO DAILY PRN 01/06/16 [History] Bumetanide [Bumex] 3 mg PO QAM 01/06/16 [History] Cetirizine HCl [Zyrtec] 10 mg PO ASDIRECTED PRN 01/06/16 [History] Labetalol HCl [Labetalol] 600 mg PO BID 01/06/16 [History] Metoprolol Tartrate [Lopressor] 100 mg PO DAILY 01/06/16 [History] Rivaroxaban [Xarelto] 20 mg PO WITHDINNER 01/06/16 [History] Nitroglycerin 0.4 mg SL ASDIRECTED PRN #1 bottle 06/09/16 [Rx] Ondansetron [Zofran ODT] 4 mg PO TID PRN 06/09/16 [History] Bumetanide 2 mg PO QPM 10/19/16 [History] Mupirocin Oint [Bactroban Oint] 1 applic TOP TID PRN 10/19/16 [History] NIFEdipine [Adalat cc] 90 mg PO ACBREAKFAST 10/19/16 [History] Canones-3 Acid Ethyl Esters [Lovaza] 2,000 mg PO BID 10/19/16 [History] Potassium Chloride [Klor-Con M20] 10 meq PO DAILY 10/19/16 [History] Albuterol [Ventolin HFA] 2 puff INH BID 09/11/17 [History] Dapagliflozin Propanediol [Farxiga] 1 tab PO DAILY 09/11/17 [History] Enalapril Maleate 40 mg PO BEDTIME 09/11/17 [History] traMADol HCl [Tramadol HCl] 50 mg PO TID PRN 09/11/17 [History] cloNIDine [Catapres] 0.2 mg PO BID PRN 09/15/17 [History] tiZANidine HCl [Tizanidine HCl] 4 mg PO TID PRN 09/15/17 [History] Chlorthalidone 25 mg PO DAILY #30 tablet 09/16/17 [Rx] Patient Handouts: Hypertension, [id number], Chlorthalidone tablets, Dizziness , [id number] - Discharge Summary/Plan Comment DC Time >30 min.: No Discharge Summary/Plan Comment: Discharge Diagnoses: HTN urgency CKD Afib on Xarelto FELIX on CPAP Kale was admitted and treated for hypertensive urgency. He was having dizziness and headaches when blood pressures would elevated. He was continued on home medications, with the addition of Chlorthalidone 25 mg today. BP have ranged from 150-170/80-90s. He remains asymptomatic with BPs at this range, but as they elevate to 200/100s he becomes symptomatic. He is ok with going home today. I did attempt to call Dr Mancilla, nephrology, per patient request regarding BPs, but he is on vacation and not available. I did speak with PCP, Dr Morataya who agreed with starting Chlorthalidone and she will follow him with BP check on or Saturday this week and he has follow up with Cardiology on SaturdaySeptember [address] Buckley in [place]. patient and agree with discharge and have no concerns at this time. They were encouraged to return to the ED or clinic if concerns do arise prior to follow up. - General Info Date of Service: 09/16/17 Admission Dx/Problem (Free Text: Dizziness Subjective Update: Headache and dizziness this morning, after BP controlled he is feeling much better and ok with discharge home today. No chest pain or SOB. No visual changes or focal neurologic changes. Functional Status: Reports: Pain Controlled, Tolerating Diet, Ambulating, Urinating - Review of Systems General: Reports: No Symptoms. Denies: Fever, Weakness, Fatigue HEENT: Reports: No Symptoms. Denies: Headaches, Sore Throat, Visual Changes Pulmonary: Reports: No Symptoms. Denies: Shortness of Breath Cardiovascular: Reports: No Symptoms. Denies: Chest Pain, Edema Gastrointestinal: Reports: No Symptoms. Denies: Abdominal Pain, Nausea, Vomiting Genitourinary: Reports: No Symptoms Musculoskeletal: Reports: No Symptoms. Denies: Neck Pain Skin: Reports: No Symptoms Neurological: Reports: No Symptoms. Denies: Confusion, Numbness, Paresthesia, Trouble Speaking, Weakness Psychiatric: Reports: No Symptoms. Denies: Confusion - Patient Data Vitals - Most Recent: Last Vital Signs Temp 98 F 09/16/17 11:34 Pulse 61 09/16/17 11:34 Resp 18 09/16/17 11:34 BP 151/111 H 09/16/17 11:34 Pulse Ox 100 09/16/17 11:34 Weight - Most Recent: 111.13 kg I&O - Last 24 hours: Intake & Output 09/16/17 09/16/17 09/16/17 06:59 14:59 22:59 Intake Total 2400 Output Total 1750 Balance 650 Lab Results - Last 24 hrs: Laboratory Results - last 24 hr 09/15/17 09/16/17 09/16/17 Range/Units 16:47 05:29 05:29 WBC 8.05 (4.0-11.0) K/uL RBC 4.95 (4.50-5.90) M/uL Hgb 15.1 (13.0-17.0) g/dL Hct 42.5 (38.0-50.0) % MCV 85.9 (80.0-98.0) fL MCH 30.5 (27.0-32.0) pg MCHC 35.5 (31.0-37.0) g/dL RDW Std Deviation 41.3 (28.0-62.0) fl RDW Coeff of Santiago 13 (11.0-15.0) % Plt Count 237 (150-400) K/uL MPV 9.70 (7.40-12.00) fL Nucleated RBC % 0.0 /100WBC Nucleated RBCs # 0 K/uL Sodium 140 (136-148) mmol/L Potassium 3.7 (3.5-5.1) mmol/L Chloride 102 (98-107) mmol/L Carbon Dioxide 26.9 (21.0-32.0) mmol/L BUN 20 H (7.0-18.0) mg/dL Creatinine 1.1 (0.8-1.3) mg/dL Est Cr Clr Drug Dosing 84.62 mL/min Estimated GFR (MDRD) > 60.0 ml/min Glucose 184 H (74-106) mg/dL POC Glucose 224 H (60-110) mg/dL Calcium 9.0 (8.5-10.1) mg/dL 09/16/17 09/16/17 Range/Units 06:22 11:32 WBC (4.0-11.0) K/uL RBC (4.50-5.90) M/uL Hgb (13.0-17.0) g/dL Hct (38.0-50.0) % MCV (80.0-98.0) fL MCH (27.0-32.0) pg MCHC (31.0-37.0) g/dL RDW Std Deviation (28.0-62.0) fl RDW Coeff of [place] (11.0-15.0) % Plt Count (150-400) K/uL MPV (7.40-12.00) fL Nucleated RBC % /100WBC Nucleated RBCs # K/uL Sodium (136-148) mmol/L Potassium (3.5-5.1) mmol/L Chloride (98-107) mmol/L Carbon Dioxide (21.0-32.0) mmol/L BUN (7.0-18.0) mg/dL Creatinine (0.8-1.3) mg/dL Est Cr Clr Drug Dosing mL/min Estimated GFR (MDRD) ml/min Glucose (74-106) mg/dL POC Glucose 166 H 187 H (60-110) mg/dL Calcium (8.5-10.1) mg/dL Med Orders - Current: Current Medications Acetaminophen (Tylenol) 650 mg PO Q4H PRN PRN Reason: Pain Last Admin: 09/16/17 09:27 Dose: 650 mg Bumetanide (Bumex) 2 mg PO DAILY@1600 [facility] Last Admin: 09/15/17 17:36 Dose: 2 mg Bumetanide (Bumex) 3 mg PO QAM [facility] Last Admin: 09/16/17 10:59 Dose: 3 mg Chlorthalidone (Chlorthalidone) 25 mg PO DAILY [facility] Last Admin: 09/16/17 12:02 Dose: 25 mg Clonidine HCl (Catapres) 0.2 mg PO BID [facility] Last Admin: 09/16/17 08:02 Dose: 0.2 mg Enalapril Maleate (Vasotec) 40 mg PO BEDTIME [facility] Last Admin: 09/15/17 21:38 Dose: 40 mg Insulin Aspart (Novolog) 0 unit SUBCUT TIDAC [facility]; Protocol Last Admin: 09/16/17 11:58 Dose: 2 units Labetalol HCl (Normodyne) 600 mg PO BID [facility] Last Admin: 09/16/17 08:03 Dose: 600 mg Metoprolol Tartrate (Lopressor) 100 mg PO BEDTIME [facility] Last Admin: 09/15/17 21:40 Dose: 100 mg Nifedipine (Procardia Xl) 90 mg PO DAILY [facility] Last Admin: 09/16/17 08:03 Dose: 90 mg Rivaroxaban (Xarelto) 20 mg PO DAILY@1730 [facility] Sertraline HCl (Zoloft) 100 mg PO BEDTIME [facility] Last Admin: 09/15/17 21:41 Dose: 100 mg Discontinued Medications Sodium Chloride (Normal Saline) 1,000 mls @ 999 mls/hr IV STAT ONE Stop: 09/15/17 11:27 Last Admin: 09/15/17 10:45 Dose: 999 mls/hr - Exam General: Reports: Alert, Oriented, Cooperative, No Acute Distress Neck: Reports: Supple Lungs: Reports: Clear to Auscultation, Normal Respiratory Effort Cardiovascular: Reports: Regular Rate, Irregular Rhythm (Male) Exam: No Hernia, Normal Inspection, Normal Prostate, Circumcised Extremities: Normal Inspection, Normal Range of Motion, Non-Tender, No Pedal Edema, Normal Capillary Refill Neurological: Reports: No New Focal Deficit Psy/Mental Status: Reports: Alert, Normal Affect, Normal Mood
[2017-09-16 15:42] VITALS: BP 170/105
[2017-09-16] MEDS: Bumetanide 1 MG Tab PO SCH (16:20)
[2017-09-16] MEDS ORDERED: Rivaroxaban 10 MG Tab PO SCH (17:30)
== END 2017-09-16 16:00 | disposition home or self-care (01) ==
LOC: MW.ED 10:19 → MW.MS 11:45
PROVIDERS: ADMIT Internal Medicine; ATTEND Internal Medicine
DX: I12.9 Hypertensive chronic kidney disease with stage 1 through stage 4 chronic kidney disease, or unspecified chronic kidney disease (principal); E11.22 Type 2 diabetes mellitus with diabetic chronic kidney disease; N18.2 Chronic kidney disease, stage 2 (mild); I48.91 Unspecified atrial fibrillation; R42 Dizziness and giddiness; Z79.01 Long term (current) use of anticoagulants; Z79.899 Other long term (current) drug therapy; G47.33 Obstructive sleep apnea (adult) (pediatric); Z99.89 Dependence on other enabling machines and devices; Z91.040 Latex allergy status
CPT/HCPCS: 36415; 71045; 80048; 80053; 81001; 82962; 83036; 84484; 85025; 85027; 93005; 96360; 99285; A9270; J1815; J7040; G0378

== ENCOUNTER 2017-10-26 13:49 | Emergency (ER) | payer OTHER ==
[2017-10-26] MEDS ORDERED: Sodium Chloride 0.9% 10 ML Syringe FLUSH PRN (14:12)
[2017-10-26] MEDS ORDERED: Sodium Chloride 0.9% 2.5 ML Syringe FLUSH PRN (14:12)
--- NOTE | 2017-10-26 14:20 | EDM.PDOC ---
ED HPI GENERAL MEDICAL PROBLEM - General Chief Complaint: General Stated Complaint: DIZZINESS Time Seen by Provider: 10/26/17 13:53 - History of Present Illness INITIAL COMMENTS - FREE TEXT/NARRATIVE: HISTORY AND PHYSICAL: History of present illness: The patient is a 52-year-old male who follows at [facility] with Dr. Morataya as well as with Dr Mancilla of nephrology and Dr. Buckley of cardiology in [place] and has a history of poorly controlled hypertension CHF and chronic kidney disease atrial fibrillation who presents today with complaints of an episode of dizziness sweating and not feeling right that occurred at a restaurant suddenly and has since resolved. The patient states he will have episodes like this when he position changes to quickly and this was very similar with a spinning-like sensation and feeling and feeling off balance and not passing out or blacking out. He has not had a headache chest pain palpitations or shortness of breath with this episode and has no abdominal pain nausea vomiting fevers or upper respiratory symptoms. The patient says this usually happens at work when he is underneath an automobile and then gets up too quickly or position changes at home to quickly but in this instance today he was already standing and was paying a bill at a restaurant. He again tells me he did not have a headache with this episode chest pain palpitations or shortness of breath and he did not pass out. He currently feels that he is at his baseline. Is compliant with his medications and he had a recent admission here to our hospital on October 15- for hypertensive urgency. I reviewed that chart and it appears that during admission he was having symptomatology of dizziness and headache whenever his blood pressure became elevated above 200/ 100. The patient says that after that admission he did follow-up with Dr. Morataya and a good blood pressure for him is 180/85 or lower. He did also follow-up with Dr. Jacques of cardiology. The patient is good about watching excess sodium in his diet but does eat salty foods on occasion. He states compliance with his medication and has had no recent illnesses. His significant other and he were concerned because of today's events and because he got so diaphoretic with this and felt so poorly during the episode but all those symptoms did resolve by the time he arrived here. He says again if he does position change quickly he can reproduce those same symptoms. He has no neurosensory changes in his legs no weakness no neck or back pain. He has been urinating normally. The patient also denies any history of motion sickness in her ear disturbances or vertigo. The patient currently takes Xarelto for his atrial fibrillation. Review of systems: As per history of present illness and below otherwise all systems reviewed and negative. Past medical history: As per history of present illness and as reviewed below otherwise noncontributory. Surgical history: As per history of present illness and as reviewed below otherwise noncontributory. Social history: No reported history of drug or alcohol abuse. Family history: As per history of present illness and as reviewed below otherwise noncontributory. Physical exam: General: Well-developed well-nourished mildly overweight man who is nontoxic and vital signs are noted by me. His initial blood pressure in triage as noted but during my evaluation it was 165/102 and the patient was asymptomatic HEENT: Atraumatic, normocephalic, pupils reactive, negative for conjunctival pallor or scleral icterus, mucous membranes moist, throat clear, neck supple, nontender, trachea midline. Lungs: Clear to auscultation, breath sounds equal bilaterally, chest nontender. Heart: S1S2, regular rate and irregularly irregular rhythm consistent with his A. fib, no overt murmurs are appreciated Abdomen: Soft, nondistended, nontender. Negative for masses or hepatosplenomegaly. NABS Pelvis: Stable nontender. Genitourinary: Deferred. Rectal: Deferred. Extremities: Atraumatic, negative for cords or calf pain. Neurovascular unremarkable. No pedal edema and full range of motion of all extremities without defects or deformities Neuro: Awake, alert, oriented. Cranial nerves II through XII unremarkable. Cerebellum unremarkable. Motor and sensory unremarkable throughout. Exam nonfocal. Skin: There is no diaphoresis no overt rashes or lesions and turgor is normal Diagnostics: EKG CBC CMP INR troponin UA CT scan of the head chest x-ray Therapeutics: IV O2 monitor Blood pressure in the ED at 1450 p.m. is 136/96 without any intervention. We will continue to monitor patient's testing results. His BUN and creatinine today are 42/1.9 which is worsened from 20/1.1 on September 16. His GFR today is 37 from prior labs done in September which were 58 and 60. I've relayed this information to the patient and family at bedside and the need to contact Dr. Mancilla with these results as they are likely driven by his medications; they tell me that since his last admission he has 2 new medications . He and his significant other stated that they have an appointment with Dr. Buckley of cardiology in [place] on Saturday and that they can discuss these lab findings with him. I will give him a prescription to have labs repeated this Saturday the day before his appointment so that he will have 2 sets of labs for comparison and evaluation. The patient currently feels asymptomatic and I did offer him observation admission for the events of earlier today and he declines that. He is aware of my concerns and says he will monitor his blood pressure at home and take it easy and return here if symptoms return. Impression: Episode of dizziness with history of same resolved, history of poorly controlled hypertension stable Definitive disposition and diagnosis as appropriate pending reevaluation and review of above. - Related Data Allergies Allergy/AdvReac Type Severity Reaction Status Date / Time latex Allergy Itching Verified 10/26/17 14:22 Home Meds: Home Meds Sertraline [Zoloft] 100 mg PO BEDTIME 05/31/14 [History] Acetaminophen [Acetaminophen ER] 650 mg PO DAILY PRN 01/06/16 [History] Bumetanide [Bumex] 3 mg PO QAM 01/06/16 [History] Labetalol HCl [Labetalol] 600 mg PO BID 01/06/16 [History] Metoprolol Tartrate [Lopressor] 100 mg PO DAILY 01/06/16 [History] Rivaroxaban [Xarelto] 20 mg PO WITHDINNER 01/06/16 [History] Nitroglycerin 0.4 mg SL ASDIRECTED PRN #1 bottle 06/09/16 [Rx] Ondansetron [Zofran ODT] 4 mg PO TID PRN 06/09/16 [History] Bumetanide 2 mg PO QPM 10/19/16 [History] Mupirocin Oint [Bactroban Oint] 1 applic TOP TID PRN 10/19/16 [History] NIFEdipine [Adalat cc] 90 mg PO ACBREAKFAST 10/19/16 [History] [place]-3 Acid Ethyl Esters [Lovaza] 2,000 mg PO BID 10/19/16 [History] Potassium Chloride [Klor-Con M20] 10 meq PO DAILY 10/19/16 [History] Dapagliflozin Propanediol [Farxiga] 1 tab PO DAILY 09/11/17 [History] Enalapril Maleate 40 mg PO BEDTIME 09/11/17 [History] traMADol HCl [Tramadol HCl] 50 mg PO TID PRN 09/11/17 [History] cloNIDine [Catapres] 0.2 mg PO BID PRN 09/15/17 [History] tiZANidine HCl [Tizanidine HCl] 4 mg PO TID PRN 09/15/17 [History] Past Medical History - Past Health History Medical/Surgical History: Denies Medical/Surgical History HEENT History: Reports: None Cardiovascular History: Reports: Afib, Hypertension Respiratory History: Reports: Sleep Apnea Other Respiratory History: on cpap Gastrointestinal History: Reports: Cholelithiasis, Hemorrhoids Other Genitourinary History: stage II kidney dse Musculoskeletal History: Reports: Back Pain, Chronic Other Musculoskeletal History: Pt complains of left knee pain x 2 weeks. Claimed to have taken Tylenol for it to no relief. Parcialy ruptured disc. Shoulder separature, fracture tail bone. Neurological History: Reports: Other (See Below) Other Neuro History: carpal tunnel Endocrine/Metabolic History: Reports: Diabetes, Type II Other Endocrine/Metabolic History: Pt reported he was diagnosed with Borderline DM. Blood sugar this morning was 170. Dermatologic History: Reports: Cellulitis - Infectious Disease History Infectious Disease History: Reports: Chicken Pox Other Infectious Disease History: Staph - Past Surgical History HEENT Surgical History: Reports: Tonsillectomy Cardiovascular Surgical History: Reports: None Respiratory Surgical History: Reports: None GI Surgical History: Reports: Cholecystectomy, Colostomy, EGD Male Surgical History: Reports: None Endocrine Surgical History: Reports: None Musculoskeletal Surgical History: Reports: Arthroscopic Knee, Carpal Tunnel, Other (See Below) Social & Family History - Family History Family Medical History: Noncontributory - Caffeine Use Caffeine Use: Reports: Coffee, Soda Caffeine Use Comment: 2cups/day; 3-4sodas/day ED ROS GENERAL - Review of Systems Review Of Systems: ROS reveals no pertinent complaints other than HPI. ED EXAM, GENERAL - Physical Exam Exam: See Below (See dictation) Course - Vital Signs Last Recorded V/S: Last Vital Signs Temp 35.4 C 10/26/17 14:00 Pulse 87 10/26/17 14:45 Resp 18 10/26/17 14:45 BP 136/96 H 10/26/17 14:45 Pulse Ox 98 10/26/17 14:45 - Orders/Labs/Meds Orders: Active Orders 24 hr Category Date Time Status Cardiac Monitoring [RC] . DIRECTED Care 10/26/17 14:12 Active EKG Documentation Completion [RC] STAT Care 10/26/17 14:12 Active Oxygen Therapy, ED [RC] ASDIRECTED Care 10/26/17 14:12 Active Pulse Oximetry [RC] ASDIRECTED Care 10/26/17 14:12 Active Chest 1V Frontal [CR] Stat Exams 10/26/17 14:13 Taken Head wo Cont [CT] Stat Exams 10/26/17 14:13 Taken UA W/MICROSCOPIC [URIN] Stat Lab 10/26/17 14:13 Ordered Sodium Chloride 0.9% [Saline Flush] Med 10/26/17 14:12 Active 10 ml FLUSH ASDIRECTED PRN Sodium Chloride 0.9% [Saline Flush] Med 10/26/17 14:12 Active 2.5 ml FLUSH ASDIRECTED PRN Saline Lock Insert [OM.PC] Stat Oth 10/26/17 14:12 Ordered Medication Orders Sodium Chloride (Saline Flush) 10 ml FLUSH ASDIRECTED PRN PRN Reason: Keep Vein Open Sodium Chloride (Saline Flush) 2.5 ml FLUSH ASDIRECTED PRN PRN Reason: Keep Vein Open Labs: Laboratory Tests 10/26/17 10/26/17 10/26/17 Range/Units 13:55 13:55 13:55 WBC 7.70 (4.0-11.0) K/uL RBC 4.98 (4.50-5.90) M/uL Hgb 15.1 (13.0-17.0) g/dL Hct 44.1 (38.0-50.0) % MCV 88.6 (80.0-98.0) fL MCH 30.3 (27.0-32.0) pg MCHC 34.2 (31.0-37.0) g/dL RDW Std Deviation 42.6 (28.0-62.0) fl RDW Coeff of Santiago 13 (11.0-15.0) % Plt Count 252 (150-400) K/uL MPV 9.90 (7.40-12.00) fL Neut % (Auto) 60.9 (48.0-80.0) % Lymph % (Auto) 28.1 (16.0-40.0) % Lucas % (Auto) 8.4 (0.0-15.0) % Eos % (Auto) 2.2 (0.0-7.0) % Baso % (Auto) 0.4 (0.0-1.5) % Neut # (Auto) 4.7 (1.4-5.7) K/uL Lymph # (Auto) 2.2 (0.6-2.4) K/uL Lucas # (Auto) 0.7 (0.0-0.8) K/uL Eos # (Auto) 0.2 (0.0-0.7) K/uL Baso # (Auto) 0.0 (0.0-0.1) K/uL Nucleated RBC % 0.0 /100WBC Nucleated RBCs # 0 K/uL INR 1.09 Sodium 140 (136-148) mmol/L Potassium 3.8 (3.5-5.1) mmol/L Chloride 102 (98-107) mmol/L Carbon Dioxide 28.8 (21.0-32.0) mmol/L BUN 42 H (7.0-18.0) mg/dL Creatinine 1.9 H (0.8-1.3) mg/dL Est Cr Clr Drug Dosing 48.99 mL/min Estimated GFR (MDRD) 37.6 ml/min Glucose 239 H (74-106) mg/dL Calcium 9.6 (8.5-10.1) mg/dL Total Bilirubin 0.6 (0.2-1.0) mg/dL AST 43 H (15-37) IU/L ALT 89 H (14-63) IU/L Alkaline Phosphatase 115 (46-116) U/L Troponin I < 0.050 (0.000-0.056) ng/mL Total Protein 8.0 (6.4-8.2) g/dL Albumin 3.8 (3.4-5.0) g/dL Globulin 4.2 H (2.0-3.5) g/dL Albumin/Globulin Ratio 0.9 L (1.3-2.8) Meds: Medications Generic Name Dose Route Start Last Admin Trade Name Freq PRN Reason Stop Dose Admin Sodium Chloride 10 ml 10/26/17 14:12 Saline Flush FLUSH ASDIRECTED PRN Keep Vein Open Sodium Chloride 2.5 ml 10/26/17 14:12 Saline Flush FLUSH ASDIRECTED PRN Keep Vein Open Departure - Departure Time of Disposition: 15:21 Disposition: Home, Self-Care 01 Condition: Good Clinical Impression: Dizziness, Worsening renal function Hypertension Qualifiers: Hypertension type: essential hypertension Qualified Code(s): I10 - Essential ( primary) hypertension - Discharge Information Referrals: PCP,Unknown [Primary Care Provider] - Forms: ED Department Discharge Additional Instructions: The following information is given to patients seen in the emergency department who are being discharged to home. This information is to outline your options for follow-up care. We provide all patients seen in our emergency department with a follow-up referral. The need for follow-up, as well as the timing and circumstances, are variable depending upon the specifics of your emergency department visit. If you don't have a primary care physician on staff, we will provide you with a referral. We always advise you to contact your personal physician following an emergency department visit to inform them of the circumstance of the visit and for follow-up with them and/or the need for any referrals to a consulting specialist. The emergency department will also refer you to a specialist when appropriate. This referral assures that you have the opportunity for followup care with a specialist. All of these measure are taken in an effort to provide you with optimal care, which includes your followup. Under all circumstances we always encourage you to contact your private physician who remains a resource for coordinating your care. When calling for followup care, please make the office aware that this follow-up is from your recent emergency room visit. If for any reason you are refused follow-up, please contact the [facility] emergency department at and ask to speak to the emergency department charge nurse. [address] [place] [address] These take all of your medications as previously prescribed and watch salt and dietary intake. Rest and do position changes slowly as we discussed. Please return to ER as needed and as discussed. Keep your appointment on Saturday with Dr. Buckley in [place] and have your blood work repeated on Saturday here and obtain those results for your appointment. - My Orders Last 24 Hours: My Active Orders 10/26/17 14:12 Cardiac Monitoring [RC] . DIRECTED EKG Documentation Completion [RC] STAT Oxygen Therapy, ED [RC] ASDIRECTED Pulse Oximetry [RC] ASDIRECTED Sodium Chloride 0.9% [Saline Flush] 10 ml FLUSH ASDIRECTED PRN Sodium Chloride 0.9% [Saline Flush] 2.5 ml FLUSH ASDIRECTED PRN Saline Lock Insert [OM.PC] Stat 10/26/17 14:13 Chest 1V Frontal [CR] Stat Head wo Cont [CT] Stat UA W/MICROSCOPIC [URIN] Stat - Assessment/Plan Last 24 Hours: My Active Orders 10/26/17 14:12 Cardiac Monitoring [RC] . DIRECTED EKG Documentation Completion [RC] STAT Oxygen Therapy, ED [RC] ASDIRECTED Pulse Oximetry [RC] ASDIRECTED Sodium Chloride 0.9% [Saline Flush] 10 ml FLUSH ASDIRECTED PRN Sodium Chloride 0.9% [Saline Flush] 2.5 ml FLUSH ASDIRECTED PRN Saline Lock Insert [OM.PC] Stat 10/26/17 14:13 Chest 1V Frontal [CR] Stat Head wo Cont [CT] Stat UA W/MICROSCOPIC [URIN] Stat
[2017-10-26 14:31] LABS: CHLORIDE,CL 102 mmol/L (98-107); SODIUM,NA 140 mmol/L (136-148)
[2017-10-26 15:36] VITALS: BP 143/100
--- NOTE | 2017-10-28 12:42 | CR ---
EXAM DATE: 10/26/17 PATIENT'S AGE: 52 Patient: ROSY CHUNG Facility: [place], [place] Site . Site : 1965 Study: XRay Chest [id number]/26/[id number] 2:34:02 PM Ordering Physician: Mercedes Cordova Final Report: INDICATION: Pain. SOB. TECHNIQUE: Single portable AP image. COMPARISON: None. FINDINGS: Lungs low in volume, clear. No pleural effusion. Heart, mediastinum and pulmonary vessels within normal limits, allowing for the shallow inspiration. No significant osseous abnormality. IMPRESSION: Negative, allowing for low lung volumes. Dictated by Joe Mcgrath MD @ Oct 26 2017 2:57PM (Electronic Signature) Report Signed by Proxy. MARGI
--- NOTE | 2017-10-28 12:43 | CT ---
EXAM DATE: 10/26/17 PATIENT'S AGE: 52 Patient: ROSY CHUNG Facility: [place], [place] Site . Site : 1965 Study: CT Head WO CONT [id number]/26/2018 2:40:55 PM Ordering Physician: Mercedes Cordova Final Report: INDICATION: Dizziness for 1 month TECHNIQUE: Non-contrast CT of the head is submitted. No comparisons. FINDINGS: The ventricles, sulci and gyri are of normal size, shape and contour. Midline structures are centrally located. No convincing evidence of intra- or extra- axial fluid collections. IMPRESSION: 1. No radiographic evidence of acute intracranial abnormalities. Dictated by Alonzo Sauceda MD @ 10/26/2017 2:52:29 PM Please note that all CT scans at this facility use dose modulation, iterative reconstruction, and/or weight-based dosing when appropriate to reduce radiation dose to as low as reasonably achievable. Dictated by: Alonzo Sauceda MD @ 10/26/2017 14:52:35 (Electronic Signature) Report Signed by Proxy. [facility]
== END 2017-10-26 15:31 | disposition home or self-care (01) ==
LOC: MW.ED 13:49
DX: I13.0 Hypertensive heart and chronic kidney disease with heart failure and stage 1 through stage 4 chronic kidney disease, or unspecified chronic kidney disease (principal); I50.9 Heart failure, unspecified; N18.9 Chronic kidney disease, unspecified; E11.22 Type 2 diabetes mellitus with diabetic chronic kidney disease; I48.91 Unspecified atrial fibrillation; Z91.040 Latex allergy status; Z79.899 Other long term (current) drug therapy
CPT/HCPCS: 36415; 70450; 70450-26; 71045; 71045-26; 80053; 84484; 85025; 85610; 93005; 99284; 99284-25

== ENCOUNTER 2018-10-21 16:59 | Emergency (ER) | payer OTHER ==
--- NOTE | 2018-10-21 17:34 | EDM.PDOC ---
ED HPI GENERAL MEDICAL PROBLEM - General Chief Complaint: Syncope Stated Complaint: FEELING WEAK, FELL IN THE SHOWER Time Seen by Provider: 10/21/18 17:05 Source of Information: Reports: Patient History Limitations: Reports: No Limitations - History of Present Illness INITIAL COMMENTS - FREE TEXT/NARRATIVE: Presents reporting nausea. The patient states that he has had nausea with dry heaves since noon on SaturdayOctober 18. The nausea has been accompanied by a metallic taste in the mouth and 3-4 episodes of diarrhea. He has not vomited. He states that he has stayed in bed since that time because "I just didn't feel good". 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 He denies abdominal pain, dysuria, chest pain, shortness of breath, ankle swelling or any other symptoms. He did get up and try to take a shower today but he became dizzy in the shower and fell down but he did not injure himself as he broke his fall with a shower curtain. He saw his primary provider 2-3 weeks ago. His blood pressure was elevated at that time so she made some minor adjustments with his medications. He has a history of hypertension, atrial fibrillation, diabetes mellitus type 2 with an A1c of less than 7.0, FELIX, CK D and obesity. He sees Dr. Mancilla, [facility] [place] for his CKD. The patient saw him a couple of months ago and he to made some adjustments with his blood pressure medicine. He states that right now he is taking "four water pills" daily. He had been taking 5. - Related Data Allergies Allergy/AdvReac Type Severity Reaction Status Date / Time latex Allergy Itching Verified 10/21/18 17:07 Home Meds: Home Meds Bumetanide 2 tab PO WITHLUNCH 10/21/18 [History] Bumetanide 3 tab PO ACBREAKFAST 10/21/18 [History] Enalapril Maleate 2 tab PO BEDTIME 10/21/18 [History] Gabapentin [Gralise] 600 mg PO QID 10/21/18 [History] Glimepiride 4 mg PO BIDMEALS 10/21/18 [History] Labetalol HCl [Labetalol] 300 mg PO TID 10/21/18 [History] Metoprolol Succinate [K[place]sp[place] Sprinkle] 200 mg PO BID 10/21/18 [History] NIFEdipine [Nifedipine ER] 90 mg PO DAILY 10/21/18 [History] Austin-3/DHA/Epa/Fish Oil [Austin 3 500 Softgel] 2 each PO BID 10/21/18 [History] Potassium Chloride 10 meq PO BID 10/21/18 [History] Rivaroxaban [Xarelto] 20 mg PO DAILY 10/21/18 [History] Sertraline HCl 100 mg PO DAILY 10/21/18 [History] oxyCODONE 5 mg PO BID PRN 10/21/18 [History] tiZANidine HCl [Tizanidine HCl] 4 mg PO TID 10/21/18 [History] traMADol HCl [Tramadol HCl] 50 mg PO Q6H PRN 10/21/18 [History] Past Medical History - Past Health History Medical/Surgical History: Denies Medical/Surgical History HEENT History: Reports: None Cardiovascular History: Reports: Afib, Hypertension Respiratory History: Reports: Sleep Apnea Other Respiratory History: on cpap Gastrointestinal History: Reports: Cholelithiasis, Hemorrhoids Other Gastrointestinal History: stomach ulcer-- " kidney disease" Genitourinary History: Reports: Other (See Below) Other Genitourinary History: stage II kidney dse Musculoskeletal History: Reports: Back Pain, Chronic Other Musculoskeletal History: Pt complains of left knee pain x 2 weeks. Claimed to have taken Tylenol for it to no relief. Parcialy ruptured disc. Shoulder separature, fracture tail bone. Neurological History: Reports: Other (See Below) Other Neuro History: carpal tunnel Psychiatric History: Reports: None Endocrine/Metabolic History: Reports: Diabetes, Type II Other Endocrine/Metabolic History: Pt reported he was diagnosed with Borderline DM. Blood sugar this morning was 170. Dermatologic History: Reports: Cellulitis - Infectious Disease History Infectious Disease History: Reports: None Other Infectious Disease History: Staph - Past Surgical History HEENT Surgical History: Reports: Tonsillectomy Cardiovascular Surgical History: Reports: None Respiratory Surgical History: Reports: None GI Surgical History: Reports: Cholecystectomy, Colostomy, EGD Male Surgical History: Reports: None Endocrine Surgical History: Reports: None Musculoskeletal Surgical History: Reports: Arthroscopic Knee, Carpal Tunnel, Other (See Below) Social & Family History - Family History Family Medical History: Noncontributory - Tobacco Use Smoking Status *Q: Never Smoker - Caffeine Use Caffeine Use: Reports: Coffee, Soda Caffeine Use Comment: 2cups/day; 3-4sodas/day - Recreational Drug Use Recreational Drug Use: No ED ROS GENERAL - Review of Systems Review Of Systems: ROS reveals no pertinent complaints other than HPI. ED EXAM, DIZZINESS - Physical Exam Exam: See Below Exam Limited By: No Limitations General Appearance: Alert, No Apparent Distress Ears: Normal External Exam Nose: Normal Inspection Throat/Mouth: Normal Inspection Head Exam: Atraumatic, Normocephalic Neck: Normal Inspection Respiratory/Chest: No Respiratory Distress, Lungs Clear, Normal Breath Sounds Cardiovascular: Normal Peripheral Pulses, No Edema, No Murmur, Irregularly Irregular GI/Abdominal: Normal Bowel Sounds, Soft, Non-Tender, No Distention Neurological: Alert, Normal Mood/Affect Back Exam: Normal Inspection. No: CVA Tenderness (L), CVA Tenderness (R) Extremities: Normal Inspection Psychiatric: Normal Affect, Normal Mood Skin Exam: Warm, Dry, Intact, Normal Color, No Rash Course - Vital Signs Last Recorded V/S: Last Vital Signs Temp 36.8 C 10/21/18 17:07 Pulse 67 10/21/18 18:51 Resp 16 10/21/18 18:51 BP 166/113 H 10/21/18 18:51 Pulse Ox 98 10/21/18 18:51 - Orders/Labs/Meds Orders: Active Orders 24 hr Category Date Time Status EKG 12 Lead [EKG Documentation Completion] [RC] STAT Care 10/21/18 17:43 Active Labs: Laboratory Tests 10/21/18 10/21/18 10/21/18 Range/Units 17:10 17:40 17:40 WBC 8.39 (4.0-11.0) K/uL RBC 5.46 (4.50-5.90) M/uL Hgb 16.1 (13.0-17.0) g/dL Hct 46.8 (38.0-50.0) % MCV 85.7 (80.0-98.0) fL MCH 29.5 (27.0-32.0) pg MCHC 34.4 (31.0-37.0) g/dL RDW Std Deviation 40.9 (28.0-62.0) fl RDW Coeff of Santiago 13 (11.0-15.0) % Plt Count 278 (150-400) K/uL MPV 9.60 (7.40-12.00) fL Neut % (Auto) 62.1 (48.0-80.0) % Lymph % (Auto) 26.5 (16.0-40.0) % Cedar % (Auto) 8.9 (0.0-15.0) % Eos % (Auto) 2.0 (0.0-7.0) % Baso % (Auto) 0.5 (0.0-1.5) % Neut # (Auto) 5.2 (1.4-5.7) K/uL Lymph # (Auto) 2.2 (0.6-2.4) K/uL Cedar # (Auto) 0.8 (0.0-0.8) K/uL Eos # (Auto) 0.2 (0.0-0.7) K/uL Baso # (Auto) 0.0 (0.0-0.1) K/uL Nucleated RBC % 0.0 /100WBC Nucleated RBCs # 0 K/uL Sodium 140 (136-148) mmol/L Potassium 3.8 (3.5-5.1) mmol/L Chloride 103 (98-107) mmol/L Carbon Dioxide 26.5 (21.0-32.0) mmol/L BUN 26 H (7.0-18.0) mg/dL Creatinine 1.9 H (0.8-1.3) mg/dL Est Cr Clr Drug Dosing 48.44 mL/min Estimated GFR (MDRD) 37.4 ml/min Glucose 139 H (74-106) mg/dL Calcium 9.4 (8.5-10.1) mg/dL Total Bilirubin 0.3 (0.2-1.0) mg/dL AST 19 (15-37) IU/L ALT 30 (14-63) IU/L Alkaline Phosphatase 89 (46-116) U/L Troponin I (0.000-0.056) ng/mL B-Natriuretic Peptide 205 H (<100) PG/ML Total Protein 7.0 (6.4-8.2) g/dL Albumin 3.1 L (3.4-5.0) g/dL Globulin 3.9 (2.6-4.0) g/dL Albumin/Globulin Ratio 0.8 L (0.9-1.6) 10/21/18 Range/Units 17:40 WBC (4.0-11.0) K/uL RBC (4.50-5.90) M/uL Hgb (13.0-17.0) g/dL Hct (38.0-50.0) % MCV (80.0-98.0) fL MCH (27.0-32.0) pg MCHC (31.0-37.0) g/dL RDW Std Deviation (28.0-62.0) fl RDW Coeff of Santiago (11.0-15.0) % Plt Count (150-400) K/uL MPV (7.40-12.00) fL Neut % (Auto) (48.0-80.0) % Lymph % (Auto) (16.0-40.0) % Cedar % (Auto) (0.0-15.0) % Eos % (Auto) (0.0-7.0) % Baso % (Auto) (0.0-1.5) % Neut # (Auto) (1.4-5.7) K/uL Lymph # (Auto) (0.6-2.4) K/uL Cedar # (Auto) (0.0-0.8) K/uL Eos # (Auto) (0.0-0.7) K/uL Baso # (Auto) (0.0-0.1) K/uL Nucleated RBC % /100WBC Nucleated RBCs # K/uL Sodium (136-148) mmol/L Potassium (3.5-5.1) mmol/L Chloride (98-107) mmol/L Carbon Dioxide (21.0-32.0) mmol/L BUN (7.0-18.0) mg/dL Creatinine (0.8-1.3) mg/dL Est Cr Clr Drug Dosing mL/min Estimated GFR (MDRD) ml/min Glucose (74-106) mg/dL Calcium (8.5-10.1) mg/dL Total Bilirubin (0.2-1.0) mg/dL AST (15-37) IU/L ALT (14-63) IU/L Alkaline Phosphatase (46-116) U/L Troponin I < 0.050 (0.000-0.056) ng/mL B-Natriuretic Peptide (<100) PG/ML Total Protein (6.4-8.2) g/dL Albumin (3.4-5.0) g/dL Globulin (2.6-4.0) g/dL Albumin/Globulin Ratio (0.9-1.6) Meds: Medications Discontinued Medications Generic Name Dose Route Start Last Admin Trade Name Rajeev PRN Reason Stop Dose Admin Clonidine HCl 0.1 mg 10/21/18 17:45 10/21/18 18:29 Catapres PO 10/21/18 17:46 0.1 mg ONETIME ONE Administration - Re-Assessments/Exams Free Text/Narrative Re-Assessment/Exam: 10/21/18 19:13 Scheduled with the patient and his . The patient states that both his primary provider and his instructor pilot frequently have to adjust his blood pressure medication as it is quite labile. In addition whenever he sees a health care provider even for just an upper respiratory problem or something his blood pressure goes "anny high". He and his state that he has been on every blood pressure medication there is at many different doses. His BUN/ creatinine and creatinine are usually about what they are today. 10/21/18 19:17 Departure - Departure Time of Disposition: 19:17 Disposition: Home, Self-Care 01 Condition: Good Clinical Impression: Nausea - Discharge Information Referrals: Maggie Morataya DO [Primary Care Provider] - Forms: ED Department Discharge Additional Instructions: 1. Return promptly for dizziness, chest pain, shortness of breath, vomiting and not keeping down oral fluids. 2. Follow-up with Dr. Morataya 3. Take your evening a pressure medications as usual - My Orders Last 24 Hours: My Active Orders 10/21/18 17:43 EKG 12 Lead [EKG Documentation Completion] [RC] STAT - Assessment/Plan Last 24 Hours: My Active Orders 10/21/18 17:43 EKG 12 Lead [EKG Documentation Completion] [RC] STAT
[2018-10-21] MEDS ORDERED: cloNIDine 0.1 MG Tab PO ONE (17:45)
[2018-10-21 19:17] VITALS: BP 170/120
== END 2018-10-21 19:40 | disposition home or self-care (01) ==
LOC: MW.ED 16:59
DX: R11.0 Nausea (principal); I12.9 Hypertensive chronic kidney disease with stage 1 through stage 4 chronic kidney disease, or unspecified chronic kidney disease; E11.22 Type 2 diabetes mellitus with diabetic chronic kidney disease; N18.2 Chronic kidney disease, stage 2 (mild); I48.91 Unspecified atrial fibrillation; Z91.040 Latex allergy status; Z79.899 Other long term (current) drug therapy
CPT/HCPCS: 80053; 83880; 84484; 85025; 93005; 99284; A9270